=== PATIENT | female | born 1980 | race Caucasian/White ===

== ENCOUNTER 2023-03-10 19:53 | Emergency (ER) | payer OTHER ==
[2023-03-10 20:24] LABS: Absolute Lymphocytes (CBC) 3.3 K/uL (0.7-4.9); Hematocrit 38.6 % (36.0-45.0); Lymphocytes % 44.2 % (15.3-44.8); MCV 81.3 fL (80-100); MPV 7.9 fL (7.6-11.3); Platelets 326 thou/uL (152-406); RBC Red Blood Cell Count 4.74 M/uL (3.86-4.86)
[2023-03-10 20:31] LABS: Protime INR 1.08
[2023-03-10] MEDS ORDERED: ASPIRIN 81 MG CHEWABLE TABLET ONE (20:44)
[2023-03-10 20:45] LABS: ALT/SGPT 30 U/L (13-56); AST/SGOT 16 U/L (15-37); Albumin 3.3 g/dL (3.4-5.0); Alkaline Phosphatase 74 U/L (45-117); BUN Blood Urea Nitrogen 12 mg/dL (7-18); Bicarbonate 23 mEq/L (21-32); Bilirubin Total 0.2 mg/dL (0.2-1.0); Glomerular Filtration Rate 110 ml/min (=/>90); Glucose Level 95 mg/dL (74-106); Magnesium 1.9 mg/dL (1.6-2.4); NT PRO-BNP 93 pg/mL (<125); Potassium 3.1 mEq/L (3.5-5.1); Protein, Total 6.9 g/dL (6.4-8.2); Sodium Level 140 mEq/L (136-145); Troponin High Sensitivity 14.9 pg/mL (<58.9)
[2023-03-10 20:50] LABS: Bilirubin Direct < 0.1 mg/dL (0-0.2); Bilirubin Indirect, Calculated ND mg/dL (0.2-0.8)
--- NOTE | 2023-03-10 20:51 | RAD REPORT ---
EXAM DESCRIPTION: RAD - Chest Single View - 03/10/2023 8:44 pm CLINICAL HISTORY: CHEST PAIN Chest pain. COMPARISON: No comparisons FINDINGS: Portable technique limits examination quality. The lungs are grossly clear. The heart is normal in size. No displaced fractures. IMPRESSION: No acute intrathoracic process suspected.
[2023-03-10 21:05] LABS: Thyroid Stimulating Hormone < 0.005 uIU/mL (0.358-3.740)
--- NOTE | 2023-03-11 00:17 | EDPHYS ---
Physician Documentation [facility] Name: Gisella Smith Age: 42 yrs Sex: Female : 1980 Arrival Date: 03/10/2023 Time: 19:53 Bed 6 Private MD: ED Physician Hector Wells HPI: 03/10 20:05 This 42 yrs old Female presents to ER via Unassigned with complaints of Chest sp4 Pain, Numbness. 20:42 42-year-old female with a history of SVT, mitral valve prolapse, migraines, asthma, sp4 SVT, hypothyroidism, mast cell activation disorder, also history of syncope, presents with acute onset of chest pain starting at 3 PM today associated with numbness in the arms and legs. Patient had history of migraines as well. Patient reported her Apple Watch registered at 200 bpm tachycardia. Patient states that the palpitations have resolved by now. She has no history of previous ablation. . Patient's medications include Nurtec ODT for migraines, Topamax 200 mg for migraines, Premarin 1.25 mg every morning, [place] Thyroid 120 mg every morning, droxidopa 200 mg 3 times a day for hypotension, atenolol 25 mg every evening. Patient has history of rheumatic fever at the age of 31. patient recently moved here from [facility] and she has schedule appointment with machine tester Dr. Ernandez but has not seen him yet. Chest pain was nonexertional. . 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/A - Hysterectomy, Not ha1 Historical: - Allergies: 20:20 Sulfa (Sulfonamide Antibiotics); kl 20:20 Morphine; kl 20:12 Morphine; ha1 20:12 Sulfa (Sulfonamide Antibiotics); ha1 20:12 Bees; ha1 - Home Meds: 20:12 droxidopa oral [Active]; atenolol 25 mg Oral tablet [Active]; Albuterol Inhl [Active]; ha1 hydroxyzine HCl 25 mg Oral tablet [Active]; Dexamethasone Oral [Active]; liothyronine 5 mcg oral tablet [Active]; topiramate 200 mg oral tablet 2 tabs daily [Active]; - PMHx: 20:20 SVT; Mitral Valve Prolapse; Migraines; kl 20:12 Asthma; SVT; MVP; Hypothyroidism; Mast Cell Activation disorder; ha1 - PSHx: 20:12 Tonsillectomy; Cholecystectomy; Appendectomy; Total abdominal hysterectomy; ha1 - Immunization history:: Adult Immunizations up to date. - Social history:: Smoking status: Patient denies any tobacco usage or history of. ROS: 20:49 Constitutional: Negative for fever, chills, and weight loss, positive chest pains and sp4 palpitations positive bilateral hand and foot numbness. 20:49 All other systems are negative, Exam: 20:49 Constitutional: This is a well developed, well nourished patient who is awake, alert, sp4 and in no acute distress. Head/Face: Normocephalic, atraumatic. Eyes: Pupils equal round and reactive to light, extra-ocular motions intact. Lids and lashes normal. Conjunctiva and sclera are not injected. Cornea within normal limits. Periorbital areas with no swelling, redness, or edema. ENT: Nares patent. No nasal discharge, no septal abnormalities noted. Tympanic membranes are normal and external auditory canals are clear. Oropharynx with no redness, swelling, or masses, exudates, or evidence of obstruction, uvula midline. Mucous membranes moist. Neck: Trachea midline, no thyromegaly or masses palpated, and no cervical lymphadenopathy. Supple, full range of motion without nuchal rigidity, or vertebral point tenderness. Chest/axilla: Normal chest wall appearance and motion. Nontender with no deformity. No lesions are appreciated. Cardiovascular: Regular rate and rhythm with a normal S1 and S2. No gallops, murmurs, or rubs. Normal PMI, no JVD. No pulse deficits. Respiratory: Lungs have equal breath sounds bilaterally, clear to auscultation and percussion. No rales, rhonchi or wheezes noted. No increased work of breathing, no retractions or nasal flaring. Abdomen/GI: Soft, non-tender, with normal bowel sounds. No distension or tympany. No guarding or rebound. No evidence of tenderness throughout. Back: No spinal tenderness. No costovertebral tenderness. Skin: Warm, dry with normal turgor. Normal color with no rashes, no lesions, and no evidence of cellulitis. MS/ Extremity: Pulses equal, no cyanosis. Neurovascular intact. Full, normal range of motion. Neuro: Awake and alert, GCS 15, oriented to person, place, time, and situation. Cranial nerves II-XII grossly intact. Motor strength 5/5 in all extremities. Sensory grossly intact. Psych: Awake, alert, with orientation to person, place and time. Behavior, mood, and affect are within normal limits 20:50 ECG was reviewed by the Attending Physician. EKG time 2001, there is normal sinus sp4 rhythm at the rate of 88, there is short CO otherwise normal EKG, no active ectopy 03/11 00:19 EKG reveals normal sinus rhythm at a rate of 91. Repeat EKG was done at 2246, no ST sp4 elevation or depression, no ectopy, overall normal EKG Vital Signs: 03/10 19:58 BP 131 / 66; Pulse 113; Resp 19 S; Temp 98; Pulse Ox 100% on R/A; Weight 63.05 kg; ha1 Height 5 ft. 8 in. ; 21:14 BP 114 / 85; Pulse 97; Resp 17 S; Pulse Ox 100% on R/A; ha1 22:00 BP 119 / 78; Pulse 90; Resp 17 S; Pulse Ox 100% on R/A; ha1 23:00 BP 121 / 92; Pulse 92; Resp 18; Pulse Ox 100% on R/A; rv 03/11 00:00 BP 112 / 91; Pulse 79; Resp 17; Temp 98; Pulse Ox 100% ; rv 03/10 19:58 Body Mass Index 21.13 (63.05 kg, 172.72 cm) ha MDM: 03/10 20:06 Patient medically screened. sp4 21:30 ED course: Chest X ray - EXAM DESCRIPTION: RAD - Chest Single View - 03/10/2023 sp4 CLINICAL HISTORY: CHEST PAIN Chest pain. COMPARISON: No comparisons FINDINGS: Portable technique limits examination quality. The lungs are grossly clear. The heart is normal in size. No displaced fractures. IMPRESSION: No acute intrathoracic process suspected. . 03/11 00:18 Differential diagnosis: abnormal EKG, acute pericarditis, anxiety, coronary artery sp4 disease chest wall pain, congestive heart failure. HEART Score: History: Moderately Suspicious (1), ECG: Normal (0), Age: < or = 45 years (0), Risk Factors: 1 or 2 risk factors (1), Troponin: < or = 1 x Normal Limit (0), Total Score = 2. The patient was given aspirin in the Emergency Department. Data reviewed: vital signs, nurses notes, diagnostic data from outside facility, old medical records, lab test result(s), cardiac enzymes, CBC, electrolytes, hepatic panel, EKG, radiologic studies, plain films. Consideration of Admission/Observation Escalation of care including admission/observation considered. ED course: EKG x2 is unremarkable, troponin x2 is normal. Patient is stable for discharge home and shows advised to see her machine tester in March as scheduled. Return to ER advised for recurrent palpitations or chest pains. 03/10 20:05 Order name: Basic Metabolic Panel; Complete Time: 21: [facility] 03/10 20:05 Order name: CBC with Diff; Complete Time: : [facility] 03/10 20:05 Order name: LFT's; Complete Time: : [facility] 03/10 20:05 Order name: Magnesium; Complete Time: 21: [facility] 03/10 20:05 Order name: NT PRO-BNP; Complete Time: 21: [facility] 03/10 20:05 Order name: PT-INR; Complete Time: 21: [facility] 03/10 20:05 Order name: Troponin HS; Complete Time: 21: [facility] 03/10 20:31 Order name: TSH; Complete Time: 21: [facility] 03/10 20:31 Order name: T4 Free; Complete Time: 21: [facility] 03/10 21:54 Order name: Troponin High Sensitivity: Timed at 23:00; Complete Time: 00:11 [facility] 03/11 00:11 Interpretation: Troponin HS 14.1. [facility] 03/10 20:05 Order name: XRAY Chest (1 view); Complete Time: 21: [facility] 03/10 20:05 Order name: EKG; Complete Time: 20: [facility] 03/10 22:27 Order name: EKG; Complete Time: 22: [facility] 03/10 20:05 Order name: Cardiac monitoring; Complete Time: 20: [facility] 03/10 20:05 Order name: EKG - Nurse/Tech; Complete Time: 20: [facility] 03/10 20:05 Order name: IV Saline Lock; Complete Time: 20: [facility] 03/10 20:05 Order name: Labs collected and sent; Complete Time: 20: sp4 03/10 20:05 Order name: O2 Per Protocol; Complete Time: 20: sp4 03/10 20:05 Order name: O2 Sat Monitoring; Complete Time: 20: sp4 03/10 22:27 Order name: EKG - Nurse/Tech; Complete Time: 22:51 sp4 EC/25 20:50 Rate is 88 beats/min. Rhythm is regular, Normal Sinus Rhythm. QRS [place] is Normal. CO sp4 interval is shortened. QRS interval is normal. QT interval is normal. No Q waves. T waves are Normal. No ST changes noted. Clinical impression: No evidence of ischemia. Interpreted by me. Reviewed by me. Administered Medications: 20:33 Drug: Aspirin PO Chewable Tablet 324 mg PO once; 81 mg tablets x 4 Route: PO; ha1 21:00 Follow up: Response: No adverse reaction ha1 Disposition Summary: 03/11/23 00:16 Discharge Ordered Problem: new sp4 Symptoms: have improved sp4 Condition: Stable sp4 Diagnosis - Palpitations sp4 - Chest pain, unspecified sp4 - Atypical chest pain sp4 Followup: sp4 - With: Glenn Ernandez MD - When: As scheduled in March - Reason: Discharge Instructions: - Discharge Summary Sheet sp4 - Palpitations, Nujx-[id number] sp4 Forms: - Patient Portal Instructions sp4 Signatures: Dispatcher [employer] Cammie Cox RN RN kl Ayala, Heidy, RN RN ha1 Hector Wells MD MD sp4
--- NOTE | 2023-03-11 00:17 | ER ---
Nurse's Notes [facility] Name: Gisella Smith Age: 42 yrs Sex: Female : 1980 Arrival Date: 03/10/2023 Time: 19:53 Bed 6 Private MD: Diagnosis: Palpitations;Chest pain, unspecified;Atypical chest pain Presentation: 03/10 19:58 Chief complaint: Patient states: I have a really bad chest pain that started this ha1 morning, but tonight it has gotten worse. pain 9/10. pain increases with movement. 19:58 Coronavirus screen: Vaccine status: Patient reports receiving the 2nd dose of the covid ha1 vaccine. Moderna. Ebola Screen: No symptoms or risks identified at this time. Initial Sepsis Screen: Does the patient meet any 2 criteria? No. Patient's initial sepsis screen is negative. Does the patient have a suspected source of infection? No. Patient's initial sepsis screen is negative. Risk Assessment: Do you want to hurt yourself or someone else? Patient reports no desire to harm self or others. Onset of symptoms was March 10, 2023. 19:58 Method Of Arrival: Wheelchair ha1 19:58 Acuity: DEONDRE 3 ha1 Triage Assessment: 20:00 General: Appears uncomfortable, Behavior is cooperative. Pain: Complains of pain in ha1 chest Pain does not radiate. Pain currently is 9 out of 10 on a pain scale. Quality of pain is described as pressure, sharp, Pain began gradually. Neuro: Level of Consciousness is awake, alert, obeys commands, Oriented to person, place, time, situation. Cardiovascular: Reports chest pain, Capillary refill < 3 seconds Patient's skin is warm and dry. Pulses are all present. Rhythm is sinus tachycardia. Respiratory: Airway is patent Respiratory effort is even, unlabored, Respiratory pattern is regular, symmetrical. Derm: Skin is pink, warm \T\ dry. Musculoskeletal: Circulation, motion, and sensation intact. Range of motion: intact in all extremities. 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 - Hysterectomy, Not ha1 Historical: - Allergies: 20:20 Sulfa (Sulfonamide Antibiotics); kl 20:20 Morphine; kl 20:12 Morphine; ha1 20:12 Sulfa (Sulfonamide Antibiotics); ha1 20:12 Bees; ha1 - Home Meds: 20:12 droxidopa oral [Active]; atenolol 25 mg Oral tablet [Active]; Albuterol Inhl [Active]; ha1 hydroxyzine HCl 25 mg Oral tablet [Active]; Dexamethasone Oral [Active]; liothyronine 5 mcg oral tablet [Active]; topiramate 200 mg oral tablet 2 tabs daily [Active]; - PMHx: 20:20 SVT; Mitral Valve Prolapse; Migraines; kl 20:12 Asthma; SVT; MVP; Hypothyroidism; Mast Cell Activation disorder; ha1 - PSHx: 20:12 Tonsillectomy; Cholecystectomy; Appendectomy; Total abdominal hysterectomy; ha1 - Immunization history:: Adult Immunizations up to date. - Social history:: Smoking status: Patient denies any tobacco usage or history of. Screenin:00 [facility] ED Fall Risk Assessment (Adult) History of falling in the last 3 months, ha1 including since admission No falls in past 3 months (0 pts) Confusion or Disorientation No (0 pts) Intoxicated or Sedated No (0 pts) Impaired Gait No (0 pts) Mobility Assist Device Used No (0 pt) Altered Elimination No (0 pt) Score/Fall Risk Level 0 - 2 = Low Risk Oriented to surroundings, Maintained a safe environment, Educated pt \T\ family on fall prevention, incl call for assistance when getting out of bed, Hourly rounding (assess needs \T\ fall precautionary measures) done. Abuse screen: Denies threats or abuse. Denies injuries from another. Nutritional screening: No deficits noted. Tuberculosis screening: No symptoms or risk factors identified. Assessment: 19:58 Reassessment: see triage assessment. ha1 21:00 Reassessment: Patient and/or family updated on plan of care and expected duration. Pain ha1 level reassessed. Patient is alert, oriented x 3, equal unlabored respirations, skin warm/dry/pink. pain 1/10 Patient states feeling better. Patient states symptoms have improved. 22:00 Reassessment: Patient and/or family updated on plan of care and expected duration. Pain ha1 level reassessed. Patient is alert, oriented x 3, equal unlabored respirations, skin warm/dry/pink. Patient denies pain at this time. 23:00 Reassessment: Patient and/or family updated on plan of care and expected duration. Pain ha1 level reassessed. Patient is alert, oriented x 3, equal unlabored respirations, skin warm/dry/pink. Patient denies pain at this time. 03/11 00:00 Reassessment: Patient and/or family updated on plan of care and expected duration. Pain ha1 level reassessed. Patient is alert, oriented x 3, equal unlabored respirations, skin warm/dry/pink. Vital Signs: 03/10 19:58 BP 131 / 66; Pulse 113; Resp 19 S; Temp 98; Pulse Ox 100% on R/A; Weight 63.05 kg; ha1 Height 5 ft. 8 in. ; 21:14 BP 114 / 85; Pulse 97; Resp 17 S; Pulse Ox 100% on R/A; ha1 22:00 BP 119 / 78; Pulse 90; Resp 17 S; Pulse Ox 100% on R/A; ha1 23:00 BP 121 / 92; Pulse 92; Resp 18; Pulse Ox 100% on R/A; rv 03/11 00:00 BP 112 / 91; Pulse 79; Resp 17; Temp 98; Pulse Ox 100% ; rv 03/10 19:58 Body Mass Index 21.13 (63.05 kg, 172.72 cm) ha1 ED Course: 03/10 19:55 Patient arrived in ED. mr 19:58 Patient has correct armband on for positive identification. Placed in gown. Bed in low ha1 position. Call light in reach. Side rails up X 1. 19:58 Arm band placed on right wrist. ha1 20:00 Patient maintains SpO2 saturation greater than 95% on room air. ha1 20:04 Hector Wells MD is Attending Physician. sp4 20:12 Triage completed. ha1 20:19 EKG completed in triage. Results shown to . kl 20:19 Inserted saline lock: 20 gauge in right antecubital area, using aseptic technique. kl Blood collected. 20:19 Basic Metabolic Panel Sent. kl 20:19 CBC with Diff Sent. kl 20:20 LFT's Sent. kl 20:20 Magnesium Sent. kl 20:20 NT PRO-BNP Sent. kl 20:20 PT-INR Sent. kl 20:20 Troponin HS Sent. kl 20:38 Client placed on continuous cardiac and pulse oximetry monitoring. NIBP monitoring ha1 applied. 20:46 XRAY Chest (1 view) In Process Unspecified. EDMS 21:24 Jacob Barajas, MICHELLE is Primary Nurse. rv 03/11 00:15 Glenn Ernandez MD is Referral Physician. sp4 00:25 No provider procedures requiring assistance completed. IV discontinued, intact, ha1 bleeding controlled, No redness/swelling at site. Pressure dressing applied. 00:26 Provided Education on: following up with marker assembler . ha1 Administered Medications: 03/10 20:33 Drug: Aspirin PO Chewable Tablet 324 mg PO once; 81 mg tablets x 4 Route: PO; ha1 21:00 Follow up: Response: No adverse reaction ha1 Medication: 20:38 VIS not applicable for this client. ha1 Outcome: 03/11 00:16 Discharge ordered by . sp4 00:25 Discharged to home ambulatory, ha1 00:25 Condition: stable 00:25 Discharge instructions given to patient, Instructed on discharge instructions, follow up and referral plans. Demonstrated understanding of instructions, follow-up care, 00:26 Patient left the ED. ha1 Signatures: Dispatcher [employer] EDMS Cammie Sexton RN RN kl Rivera, Mary, Reg Reg mr Jacob Barajas RN RN rv Ayala, Heidy, RN RN ha1 Hector Wells MD MD sp4 Corrections: (The following items were deleted from the chart) 03/10 21:18 19:58 BP 131 / 66; Pulse 113bpm; Resp 19bpm; Spontaneous; Pulse Ox 100% RA; 63.05 kg; ha1 Height 5 ft. 8 in.; BMI: 21.1; ha1 22:53 22:00 BP 134 / 75; Pulse 76bpm; Resp 17bpm; Spontaneous; Pulse Ox 100% RA; ha1 ha1
--- NOTE | 2023-03-11 07:57 | EKG ---
Test Date: 2023-03-10 Test Time: 22:46:41 X Ray Operator: JANUSZ MEASUREMENT RESULTS: Intervals: Rate: 91 WV: 126 QRSD: 74 QT: 378 QTc: 464 [place]: P: 60 WV: 126 QRS: 84 T: 50 INTERPRETIVE STATEMENTS: Normal sinus rhythm Normal ECG Compared to ECG 03/10/2023 20:02:23 Short [place] interval no longer present Electronically Signed On 03-11-23 07:56:46 CDT by Glenn Ernandez
--- NOTE | 2023-03-11 07:58 | EKG ---
Test Date: 2023-03-10 Test Time: 20:02:23 Neonatal Doctor: MAGGIE MEASUREMENT RESULTS: Intervals: Rate: 88 MD: 108 QRSD: 76 QT: 366 QTc: 442 [place]: P: 63 MD: 108 QRS: 84 T: 45 INTERPRETIVE STATEMENTS: Sinus rhythm with short MD Otherwise normal ECG No previous ECG available for comparison Electronically Signed On 03-11-23 07:56:53 CDT by Glenn Ernandez
[2023-03-11 16:15] VITALS: BP 112/91; TEMP 98; O2SAT 100
== END 2023-03-11 00:26 | disposition home or self-care (01) ==
LOC: ER 19:53
DX: R00.2 Palpitations (principal); R07.9 Chest pain, unspecified; E03.9 Hypothyroidism, unspecified; J45.909 Unspecified asthma, uncomplicated; I34.1 Nonrheumatic mitral (valve) prolapse; Z88.5 Allergy status to narcotic agent; Z88.2 Allergy status to sulfonamides
CPT/HCPCS: 36415; 71045; 80048; 80076; 83735; 83880; 84439; 84443; 84484; 85025; 85610; 93005; 99285

== ENCOUNTER 2023-05-24 10:46 | Observation (INO) | payer OTHER ==
--- OUTSIDE RECORDS SUMMARY | 2023-05-24 10:49 | XMS REPORT | Continuity of Care Document ---
Author Name Unknown Address [address] [place] [address] [facility] Address [address] [facility] [address] [place] [address] Care Team Providers Care Hoe Runner Name Role Phone BLACK GALLAGHER Attending Clinician Unavailable [id number] Attending Clinician Unavailable MACIEL MONACO Attending Clinician Unavailable Payers Payer Name Policy Type Policy Number Effective Date Expirati on Date Source CIGNA-CIGNA/PPO 2 [id number] 2023 00:00:00 Problems Condition Name Condition Details Condition Category Status Onset Date Resolution Date Last Treatment Date Treating Clinician Comments Source Allergic rhinitis Allergic rhinitis Disease Active 2022-05 0- 00:00: 00 Paula Katzold - Externa l Asthma (HHS-HCC) Asthma (HHS-HCC) Disease Active 2022-05 0- 00:00: 00 Paula Katzold - Externa l 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 2022-05 0- 00:00: 00 Paula Seybold - Externa l GERD (gastroeso phageal reflux disease) GERD (gastroeso phageal reflux disease) Disease Active 2022-05 0- 00:00: 00 Paula Seybold - Externa l Hypothyroi dism (acquired) Hypothyroi dism (acquired) Disease Active 2022-05 0- 00:00: 00 Paula Mayaybold - Externa l 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 2022-05 0- 00:00: 00 Paula Katzold - Externa l Migraine Migraine Disease Active 2022-05 0- 00:00: 00 Paula Arreguina aileen Orthostati c hypotensio n Orthostati c hypotensio n Disease Active 2022-05 0 00:00: 00 Paula Arreguina aileen Mitral valve prolapse Mitral valve prolapse Disease Active 2022-05 0 00:00: 00 Paula Arreguina aileen SVT (supravent ricular tachycardi a) SVT (supravent ricular tachycardi a) Disease Active 2022-05 0 00:00: 00 Paula Arreguina aileen Hormone replacemen t therapy Hormone replacemen t therapy Disease Active 2022-05 0 00:00: 00 Paula Arreguina aileen Allergies, Adverse Reactions, Alerts Allergy Name Allergy Type Status Severity Reaction(s) Onset Date Inactive Date Treating Clinician Comments Source Honey Propensi ty to adverse reaction s Active Anaphylaxis 2022-05 00:00: 00 Paula Arreguina aileen Morphine Propensi ty to adverse reaction s Active Anaphylaxis 2022-05 0 00:00: 00 Paula Arreguina aileen Sulfa Drugs Propensi ty to adverse reaction s Active Hives 2022-05 0 00:00: 00 Paula Arreguina aileen Bee Venom Propensi ty to adverse reaction s Active Anaphylaxis 2022-05 00:00: 00 Paula Arreguina aileen Social History Social Habit Start Date Stop Date Quantity Comments Source Sexual orientation Mignon diony Velazco - External Alcohol intake 2023-02-15 00:00:00 2023-02-15 00:00:00 Current drinker of alcohol (finding) Paula Velazco - External History of Social function 2023-02-15 00:00:00 2023-02-15 00:00:00 Paula Velazco - External Education 2023-02-15 00:00:00 2023-02-15 00:00:00 18 Paula Velazco - External Alcohol Comment 2023-02-15 00:00:00 2023-02-15 00:00:00 rarely Paula Velazco - External Tobacco use and exposure 2023-02-15 00:00:00 2023-02-15 00:00:00 Smokeless tobacco non-user Paula Sosa Sex Assigned At 1980 00:00:00 1980 00:00:00 Paula Sosa Smoking Status Start Date Stop Date Source Never smoked tobacco Paula Sosa Medications Ordered Medication Name Filled Medication Name Start Date Stop Date Current Medication? Ordering Clinician Indication Dosage Frequency Signature (SIG) Comments Components Source Famotidine (Pepcid) 20 MG oral tablet 2022-05 12:02: 35 02-15 00:00 :00 No 20mg Take 1 tablet (20 mg total) by mouth 2 times daily. Paula gallagher Thyroid 120 MG oral Tablet 2022-05 12:02: 35 02-15 00:00 :00 No 1{tbl} Take 1 tablet by mouth daily. Paula gallagher EPINEPHrine (EPIPEN IJ) 2022-05 11:51: 05 02-15 00:00 :00 No Inject as directed. Paula gallagher Fluconazole (DIFLUCAN OR) 2022-05 11:50: 27 02-15 00:00 :00 No Take by mouth. Paula gallagher Cetirizine HCl (ZyrTEC) 10 MG oral Chewable Tablet 2022-05 11:41: 56 Yes [id number] 10mg Take 1 tablet (10 mg total) by mouth daily. Paula gallagher Loratadine (Claritin) 10 MG oral Capsule 2022-05 11:41: 56 Yes [id number] 10mg Take 1 capsule (10 mg total) by mouth daily. Paula gallagher Topiramate 200 MG oral Tablet 2022-05 00:00: 00 Yes [id number] 200mg Take 1 tablet (200 mg total) by mouth 2 times daily. Paula gallagher hydrOXYzine HCl 25 MG oral Tablet 2022-05 00:00: 00 Yes [id number] 25 mg am and 50 mg night. Paula gallagher Liothyronin e Sodium 5 MCG oral Tablet 2022-05 00:00: 00 Yes [id number] 5ug Take 1 tablet (5 mcg total) by mouth 2 times daily. Paula gallagher Thyroid 120 MG oral Tablet 2022-05 00:00: 00 Yes [id number] 1{tbl} Take 1 tablet by mouth daily. Paula gallagher Famotidine (Pepcid) 20 MG oral tablet 2022-05 00:00: 00 Yes [id number] 20mg Take 1 tablet (20 mg total) by mouth 2 times daily. Paula gallagher Droxidopa 200 MG oral Capsule 2022-05 00:00: 00 Yes [id number] 200mg Take 200 mg by mouth 3 times daily. Paula gallagher Cyclobenzap rine HCl 5 MG oral Tablet 2022-05 00:00: 00 Yes [id number] 5mg QD Take 1 tablet (5 mg total) by mouth nightly as needed for muscle spasms. Paula gallagher Atenolol 25 MG oral Tablet 2022-05 00:00: 00 Yes [id number] 25mg Take 1 tablet (25 mg total) by mouth daily. Paula gallagher EPINEPHrine 0.3 MG/0.3 ML IJ SOA 2022-05 00:00: 00 Yes [id number] .3mg Inject 0.3 mL (0.3 mg total) into the muscle as needed for anaphylaxi s 1 time only. Paula gallagher Estrogens Conjugated (Premarin) 1.25 MG oral Tablet 2022-05 00:00: 00 Yes [id number] 1.25mg Take 1 tablet (1.25 mg total) by mouth daily. Paula gallagher Liothyronin e Sodium 5 MCG oral Tablet 2022-05 00:00: 00 02-15 00:00 :00 No 5ug Take 1 tablet (5 mcg total) by mouth 2 times daily. Paula gallagher Cyclobenzap rine HCl 5 MG oral Tablet 9-30 00:00: 00 02-15 00:00 :00 No Paula gallagher hydrOXYzine HCl 25 MG oral Tablet 930 00:00: 00 02-15 00:00 :00 No 25mg Take 1 tablet (25 mg total) by mouth 2 times daily 25 mg am and 50 mg night. Paula gallagher Montelukast (SINGULAIR) 10 MG oral Tablet tablet 02-10 00:00: 00 Yes [id number] 10mg Take 1 tablet (10 mg total) by mouth daily. Paula gallagher Atenolol 25 MG oral Tablet 02-10 00:00: 00 02-15 00:00 :00 No Paula gallaghre Droxidopa 200 MG oral Capsule 9-07 00:00: 00 02-15 00:00 :00 No 200mg Take 200 mg by mouth 3 times daily. Paula gallagher [place] Saline Nasal nasal Gel 825 00:00: 00 Yes [id number] Paula gallagher Premarin 1.25 MG oral Tablet 8-15 00:00: 00 02-15 00:00 :00 No 1.25mg Take 1 tablet (1.25 mg total) by mouth daily. Paula gallagher Topiramate 200 MG oral Tablet -03 00:00: 00 02-15 00:00 :00 No 20mg Take 20 mg by mouth 2 times daily. Paula gallagher Nurtec 75 MG oral TABLET DISPERSIBLE 8 00:00: 00 Yes [id number] 75mg Take 1 tablet (75 mg total) by mouth as needed. Paula gallagher Immunizations Ordered Immunization Name Filled Immunization Name Date Status Comments Source Covid-19 Vaccine Moderna (Spikevax), Mrna-lnp, Kevin Protein, Pf Unknown Completed Paula Sosa Covid-19 Vaccine Moderna (Spikevax), Mrna-lnp, Kevin Protein, Pf Unknown Completed Paula Sosa Covid-19 Vaccine (SunGard), Mrna-lnp, Kevin Protein, Pf, 30mcg/0.3ml,IM Unknown Completed Paula Campo d - External COVID-19 BIVALENT VACCINE MODERNA Unknown Completed Paula Cotto ld - External Influenza, Injectable, Mdck, Quadrivalent With Preservative Unknown Completed Paula Velazco - External Tdap- (Boostrix, Adacel) Unknown Completed Paula Katzold - External Vital Signs Vital Name Observation Time Observation Value Comments S ource Systolic blood pressure 2023-02-15 16:32:00 138 mm[Hg] Paula jimo ld - External Diastolic blood pressure 2023-02-15 16:32:00 78 mm[Hg] Paula Cotto ld - External Heart rate 2023-02-15 16:32:00 72 /min Hayley wang giovani - External Body temperature 2023-02-15 16:32:00 36.72 Bryanna Paula jimold - External Respiratory rate 2023-02-15 16:32:00 14 /min Paula jimold - External Body height 2023-02-15 16:32:00 172.7 cm Roxanne mendez Seybold - External Body weight 2023-02-15 16:32:00 65.772 kg Roxanne mendez Seybold - External BMI 2023-02-15 16:32:00 22.05 kg/m2 Roxanne mendez Seybold - External Encounters Start Date/Time End Date/Time Encounter Type Admission Type Attending [facility] Care Department Encounter ID Source 2023-05-20 08:30:00 2023-05-20 08:30:00 Outpatient BLACK GALLAGHER [id number] Paula Velazco 2023-04-23 10:20:00 2023-04-23 10:20:00 Outpatient LAB90 PAULA MITCHELL [id number] Paula Velazco 2023-04-23 00:00:00 2023-04-23 00:00:00 Outpatient BLACK GALLAGHER [id number] Paula Velazco 2023-03-10 11:30:00 2023-03-10 11:30:00 Outpatient MACIEL MONACO [id number] Paula Velazco 2023-03-05 00:00:00 2023-03-05 00:00:00 Outpatient BLACK GALLAGHER [id number] Paula Velazco 2023-02-17 00:00:00 2023-02-17 00:00:00 Outpatient BLACK GALLAGHER [id number] Paula Velazco 2023-02-15 11:15:00 2023-02-15 11:15:00 Outpatient BLACK GALLAGHER [id number] Paula Velazco
[2023-05-24 11:48] LABS: Absolute Lymphocytes (CBC) 3.2 K/uL (0.7-4.9); Hematocrit 38.7 % (36.0-45.0); Lymphocytes % 60.2 % (15.3-44.8); MCV 81.8 fL (80-100); MPV 8.4 fL (7.6-11.3); Platelets 289 thou/uL (152-406); RBC Red Blood Cell Count 4.72 M/uL (3.86-4.86)
[2023-05-24 11:59] LABS: Protime INR 1.1
[2023-05-24] MEDS ORDERED: ASPIRIN 81 MG CHEWABLE TABLET ONE (12:04)
[2023-05-24 12:07] LABS: Albumin 3.4 g/dL (3.4-5.0); Bilirubin Direct 0.1 mg/dL (0-0.2); Bilirubin Indirect, Calculated 0.3 mg/dL (0.2-0.8); Bilirubin Total 0.4 mg/dL (0.2-1.0); Magnesium 1.6 mg/dL (1.6-2.4); Potassium 3.2 mEq/L (3.5-5.1); Protein, Total 7.2 g/dL (6.4-8.2)
[2023-05-24 12:17] LABS: Blood Morphology Comment NOT SEEN (NOT SEEN); Platelet Estimate ADEQ
--- NOTE | 2023-05-24 12:24 | RAD REPORT ---
EXAM DESCRIPTION: RAD - Chest Single View - 05/24/2023 12:18 pm CLINICAL HISTORY: CHEST PAIN Chest pain. COMPARISON: Chest Single View dated 03/10/2023 FINDINGS: Portable technique limits examination quality. The lungs are grossly clear. The heart is normal in size. No displaced fractures. IMPRESSION: No acute intrathoracic process suspected.
--- NOTE | 2023-05-24 15:18 | EDPHYS ---
Physician Documentation [facility] Name: Gisella Smith Age: 42 yrs Sex: Female : 1980 Arrival Date: 05/24/2023 Time: 10:46 Bed 20 Private MD: ED Physician Natali Bashir HPI: 05/24 15:21 This 42 yrs old Female presents to ER via Wheelchair with complaints of Chest gb1 Pain, Dizziness. 11:46 42-year-old female presents with left-sided chest pain that radiates down her gb1 left arm and left jaw. She has a history of mitral valve prolapse and SVT as well as hypothyroidism. She has been seen by Dr. Choi her social contact worker and was recommended last week to get a left heart cath due to and performing poorly on her stress test. Patient states the pain is not radiating anywhere other than as previously stated. She denies any fever chills or diarrhea.. 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 N/A - Hysterectomy, Not tl4 Historical: - Allergies: 11:31 Morphine; iw 11:31 Bees; iw 11:31 Sulfa (Sulfonamide Antibiotics); iw - Home Meds: 15:12 albuterol sulfate 90 mcg/actuation inhalation HFA Aerosol Inhaler [Active]; atenolol 25 tl4 mg Oral tablet daily [Active]; topiramate 200 mg Oral tablet 2 tabs daily [Active]; liothyronine 5 mcg Oral tablet [Active]; droxidopa 300 mg oral capsule 3 times per day [Active]; hydroxyzine HCl 25 mg Oral tablet [Active]; [place] Thyroid 120 mg oral tablet daily [Active]; Premarin 1.25 mg Oral tablet daily [Active]; Zyrtec 10 mg Oral tablet every day at bedtime [Active]; Claritin 10 mg Oral tablet daily [Active]; Pepcid AC 10 mg Oral tablet [Active]; Singulair 10 mg Oral tablet every day at bedtime [Active]; Nurtec ODT 75 mg oral Tablet,disintegrating [Active]; dexamethasone sodium phosphate 0.1 % Opht drops [Active]; Zofran Oral [Active]; - PMHx: 11:31 Asthma; Hypothyroidism; Mast Cell Activation disorder; mitral valve prolapse; SVT; iw 15:18 Migraines; tl4 - PSHx: 15:18 Appendectomy; Cholecystectomy; Tonsillectomy; Total abdominal hysterectomy; tl4 - Immunization history:: Adult Immunizations unknown. - Social history:: Smoking status: Patient denies any tobacco usage or history of. ROS: 11:46 Cardiovascular: Positive for chest pain, gb1 11:46 All other systems are negative, Exam: 11:46 Constitutional: This is a well developed, well nourished patient who is awake, alert, gb1 and in no acute distress. Head/Face: Normocephalic, atraumatic. Eyes: Pupils equal round and reactive to light, extra-ocular motions intact. Lids and lashes normal. Conjunctiva and sclera are non-icteric and not injected. Cornea within normal limits. Periorbital areas with no swelling, redness, or edema. ENT: Nares patent. No nasal discharge, no septal abnormalities noted. Tympanic membranes are normal and external auditory canals are clear. Oropharynx with no redness, swelling, or masses, exudates, or evidence of obstruction, uvula midline. Mucous membranes moist. Neck: Trachea midline, no thyromegaly or masses palpated, and no cervical lymphadenopathy. Supple, full range of motion without nuchal rigidity, or vertebral point tenderness. No Meningismus. Respiratory: Lungs have equal breath sounds bilaterally, clear to auscultation and percussion. No rales, rhonchi or wheezes noted. No increased work of breathing, no retractions or nasal flaring. Abdomen/GI: Soft, non-tender, with normal bowel sounds. No distension or tympany. No guarding or rebound. No evidence of tenderness throughout. Back: No spinal tenderness. No costovertebral tenderness. Full range of motion. Skin: Warm, dry with normal turgor. Normal color with no rashes, no lesions, and no evidence of cellulitis. MS/ Extremity: Pulses equal, no cyanosis. Neurovascular intact. Full, normal range of motion. 11:46 Cardiovascular: Rate: tachycardic, Rhythm: regular, Heart sounds: normal, Vital Signs: 11:31 BP 129 / 82; Pulse 91; Resp 18; Pulse Ox 100% on R/A; iw 12:16 BP 108 / 98; Pulse 86; Resp 18; Pulse Ox 100% ; Pain 0/10; tl4 13:00 BP 110 / 62; Pulse 77; Resp 16; Pulse Ox 100% on R/A; tl4 14:00 BP 116 / 78; Pulse 72; Resp 18; Pulse Ox 100% on R/A; tl4 15:00 BP 110 / 67; Pulse 79; Resp 20; Pulse Ox 98% on R/A; tl4 12:16 Pain Scale: Adult tl4 MDM: 11:33 Patient medically screened. gb1 11:46 Differential diagnosis: abnormal EKG, acute myocardial infarction, acute pericarditis, gb1 coronary artery disease cholecystitis, Cholelithiasis mitral valve prolapse, pancreatitis, pericarditis, pulmonary embolus, stable angina, unstable angina. 15:17 HEART Score: History: Highly Suspicious (2), ECG: Significant ST-deviation (2), Age: < gb1 or = 45 years (0), Risk Factors: 1 or 2 risk factors (1), Troponin: < or = 1 x Normal Limit (0), Total Score = 5. The patient was given aspirin in the Emergency Department. Data reviewed: vital signs, nurses notes, EKG, radiologic studies, Chest x-ray is within normal limits.. Counseling: I had a detailed discussion with the patient and/or guardian regarding the historical points, exam findings, and any diagnostic results supporting the discharge/admit diagnosis, lab results, the need for further work-up and treatment in the hospital. Transition of care: After a detail discussion of the patient's case, care is transferred to Javier Trejo MD. ED course: I discussed the case with Dr. Trejo in the emergency department he agreed to admit her to the telemetry unit. The inpatient team will reach out to Dr. Ernandez and devise a plan for this patient. I likely think that she will be left heart cath patient on this admission.. 05/24 11:34 Order name: Basic Metabolic Panel; Complete Time: 12:43 05/24 11:34 Order name: CBC with Diff; Complete Time: 12:43 05/24 11:34 Order name: D-Dimer; Complete Time: 12:02 05/24 11:34 Order name: LFT's; Complete Time: 12:43 gb05/24 11:34 Order name: Magnesium; Complete Time: 12:43 05/24 11:34 Order name: NT PRO-BNP; Complete Time: 12:43 gb1 05/24 11:34 Order name: PT-INR; Complete Time: 12:02 gb1 05/24 11:34 Order name: Troponin HS; Complete Time: 12:43 gb1 05/24 11:34 Order name: Lipase; Complete Time: 12:43 gb1 05/24 12:17 Order name: Manual Differential; Complete Time: 12:43 EDMS 05/24 23:46 Order name: Troponin High Sensitivity; Complete Time: 19:47 EDMS 05/25 04:29 Order name: CBC with Automated Diff; Complete Time: 19:47 EDMS 05/25 04:39 Order name: Troponin High Sensitivity; Complete Time: 19:47 EDMS 05/25 04:53 Order name: Basic Metabolic Panel; Complete Time: 19:47 EDMS 05/25 04:53 Order name: Lipid Profile; Complete Time: 19:47 EDMS 05/25 04:53 Order name: T4 Free; Complete Time: 19:47 EDMS 05/25 04:53 Order name: Thyroid Stimulating Hormone; Complete Time: 19:47 EDMS 05/24 11:34 Order name: XRAY Chest (1 view); Complete Time: 12:43 gb1 05/24 11:34 Order name: EKG; Complete Time: 11:35 gb1 05/24 11:34 Order name: Cardiac monitoring; Complete Time: 11:54 gb1 05/24 11:34 Order name: EKG - Nurse/Tech; Complete Time: 11:54 gb1 05/24 11:34 Order name: IV Saline Lock; Complete Time: 11:54 gb05/24 11:34 Order name: Labs collected and sent; Complete Time: 11:54 gb05/24 11:34 Order name: O2 Per Protocol; Complete Time: 12:02 gb1 05/24 11:34 Order name: O2 Sat Monitoring; Complete Time: 12:02 gb Administered Medications: 12:09 Drug: Aspirin PO Chewable Tablet 324 mg PO once; 81 mg tablets x 4 Route: PO; tl4 16:16 Follow up: Response: No adverse reaction tl4 Disposition: 15:21 Chart complete. Chart complete. Chart complete. gb1 Disposition Summary: 05/24/23 15:17 Hospitalization Ordered Notes: Hospitalization Status: Observation gb1 Provider: Trejo, Javier gb1 Condition: Stable gb1 Problem: new gb1 Symptoms: are unchanged gb1 Bed/Room Type: Standard gb1 Location: Telemetry/MedSurg (observation)(05/25/23 12:34) bd Room Assignment: 228(05/25/23 12:34) bd Diagnosis - Unstable angina gb1 - Chest pain, unspecified gb1 Forms: - Medication Reconciliation Form gb1 - SBAR form gb1 - Leadership Thank You Letter gb1 Signatures: Dispatcher [employer] EDMarilyn Parisi Irene RN RN iw Neva Corado, RN RN kb3 Natali Bashir MD MD gb1 Logdahl, Wilfredo tl4 Corrections: (The following items were deleted from the chart) 15:20 15:12 Home Meds: Dexamethasone Oral; tl4 tl4 15:20 15:18 PMHx: SVT; tl4 tl4 15:20 15:18 PMHx: MVP; tl4 tl4 18:28 15:17 Telemetry/MedSurg (observation) gb1 kb3 18:28 15:17 gb1 kb3 05/25 12:34 05/24 18:28 [facility] ER HOLD kb3 bd 05/25 12:34 05/24 18:28 ERHOLD- kb3 bd
--- NOTE | 2023-05-24 15:18 | ER ---
Nurse's Notes [facility] Name: Gisella Smith Age: 42 yrs Sex: Female : 1980 Arrival Date: 05/24/2023 Time: 10:46 Bed 20 Private MD: Diagnosis: Unstable angina;Chest pain, unspecified Presentation: 05/24 11:29 Chief complaint: Patient states: having chest pain all weekend, is due for heart cath iw on Wednesday , has also been fainting which she does from time to time. Coronavirus screen: At this time, the client does not indicate any symptoms associated with coronavirus-19. Ebola Screen: Patient negative for fever greater than or equal to 101.5 degrees Fahrenheit, and additional compatible Ebola Virus Disease symptoms Patient denies exposure to infectious person. Patient denies travel to an Ebola-affected area in the 21 days before illness onset. No symptoms or risks identified at this time. Risk Assessment: Do you want to hurt yourself or someone else? Patient reports no desire to harm self or others. 11:29 Method Of Arrival: Wheelchair iw 11:29 Acuity: DEONDRE 2 iw 11:31 Initial Sepsis Screen: Does the patient meet any 2 criteria? No. Patient's initial iw sepsis screen is negative. Does the patient have a suspected source of infection? No. Patient's initial sepsis screen is negative. Onset of symptoms was May 22, 2023. Triage Assessment: 12:15 General: Appears in no apparent distress. Behavior is calm, cooperative. General: tl4 Behavior is anxious. Pain: Denies pain. 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:32 LMP N/A - Hysterectomy, Not tl4 Historical: - Allergies: 11:31 Morphine; iw 11:31 Bees; iw 11:31 Sulfa (Sulfonamide Antibiotics); iw - Home Meds: 15:12 albuterol sulfate 90 mcg/actuation inhalation HFA Aerosol Inhaler [Active]; atenolol 25 tl4 mg Oral tablet daily [Active]; topiramate 200 mg Oral tablet 2 tabs daily [Active]; liothyronine 5 mcg Oral tablet [Active]; droxidopa 300 mg oral capsule 3 times per day [Active]; hydroxyzine HCl 25 mg Oral tablet [Active]; [place] Thyroid 120 mg oral tablet daily [Active]; Premarin 1.25 mg Oral tablet daily [Active]; Zyrtec 10 mg Oral tablet every day at bedtime [Active]; Claritin 10 mg Oral tablet daily [Active]; Pepcid AC 10 mg Oral tablet [Active]; Singulair 10 mg Oral tablet every day at bedtime [Active]; Nurtec ODT 75 mg oral Tablet,disintegrating [Active]; dexamethasone sodium phosphate 0.1 % Opht drops [Active]; Zofran Oral [Active]; - PMHx: 11:31 Asthma; Hypothyroidism; Mast Cell Activation disorder; mitral valve prolapse; SVT; iw 15:18 Migraines; tl4 - PSHx: 15:18 Appendectomy; Cholecystectomy; Tonsillectomy; Total abdominal hysterectomy; tl4 - Immunization history:: Adult Immunizations unknown. - Social history:: Smoking status: Patient denies any tobacco usage or history of. Screenin:13 [facility] ED Fall Risk Assessment (Adult) History of falling in the last 3 months, tl4 including since admission No falls in past 3 months (0 pts) Confusion or Disorientation No (0 pts) Intoxicated or Sedated No (0 pts) Impaired Gait No (0 pts) Mobility Assist Device Used No (0 pt) Altered Elimination No (0 pt) Score/Fall Risk Level 0 - 2 = Low Risk. Abuse screen: Denies threats or abuse. Denies injuries from another. Nutritional screening: No deficits noted. Tuberculosis screening: No symptoms or risk factors identified. Assessment: 12:11 Reassessment: Patient and/or family updated on plan of care and expected duration. Pain tl4 level reassessed. Patient is alert, oriented x 3, equal unlabored respirations, skin warm/dry/pink. Pt denies any chest pain or discomfort, SOB. Pain: Denies pain. Pain does not radiate. Pain began patient currently does not have pain. pain is sudden in onset when she has it. Cardiovascular: Reports lightheadedness, nausea, chest pain, resolved. Vital Signs: 11:31 BP 129 / 82; Pulse 91; Resp 18; Pulse Ox 100% on R/A; iw 12:16 BP 108 / 98; Pulse 86; Resp 18; Pulse Ox 100% ; Pain 0/10; tl4 13:00 BP 110 / 62; Pulse 77; Resp 16; Pulse Ox 100% on R/A; tl4 14:00 BP 116 / 78; Pulse 72; Resp 18; Pulse Ox 100% on R/A; tl4 15:00 BP 110 / 67; Pulse 79; Resp 20; Pulse Ox 98% on R/A; tl4 12:16 Pain Scale: Adult tl4 ED Course: 10:47 Patient arrived in ED. rg4 11:29 Michelle Chester, RN is Primary Nurse. iw 11:31 Triage completed. iw 11:32 Arm band placed on. iw 11:33 Natali Bashir MD is Attending Physician. gb1 12:14 Patient has correct armband on for positive identification. Placed in gown. Bed in low tl4 position. Call light in reach. Side rails up X2. Provided Education on: ED process. Client placed on continuous cardiac and pulse oximetry monitoring. NIBP monitoring applied. engine monitor on. Door closed. Noise minimized. Lights dimmed. Warm blanket given. 12:14 No provider procedures requiring assistance completed. Patient maintains SpO2 tl4 saturation greater than 95% on room air. 12:20 XRAY Chest (1 view) In Process Unspecified. EDMS 15:16 Javier Trejo MD is Hospitalizing Provider. gb1 05/25 08:49 Patient admitted, IV remains in place. db Administered Medications: 05/24 12:09 Drug: Aspirin PO Chewable Tablet 324 mg PO once; 81 mg tablets x 4 Route: PO; tl4 16:16 Follow up: Response: No adverse reaction tl4 Medication: 12:13 VIS not applicable for this client. tl4 Outcome: 15:17 Decision to Hospitalize by Provider. gb1 05/25 08:49 Admitted to ER Hold. Please see [facility] for further documentation. db Condition: stable Instructed on the need for admit, 13:50 Patient left the ED. db Signatures: Dispatcher [employer] EDMS Michelle Chester RN RN iw Rachelle Herrera rg4 Barbie Whipple RN RN db Natali Bashir MD MD gb1 LogdaWilfredo chinchilla tl4 Corrections: (The following items were deleted from the chart) 05/24 15:20 15:12 Home Meds: Dexamethasone Oral; tl4 tl4 15:20 15:18 PMHx: SVT; tl4 tl4 15:20 15:18 PMHx: MVP; tl4 tl4
--- NOTE | 2023-05-24 16:34 | P.HP ---
Certification for Inpatient Patient admitted to: Observation With expected LOS: <2 Midnights Patient will require the following post-hospital care: None Practitioner: I am a practitioner with admitting privileges, knowledge of patient current condition, hospital course, and medical plan of care. Services: Services provided to patient in accordance with Admission requirements found in Title 42 Section 412.3 of the Code of Federal Regulations Patient History Date of Service: 05/24/23 Reason for admission: Chest pain History of Present Illness: 42-year-old female with history of Gurmeet-Danlos syndrome, asthma, hypothyroidism, mast cell activation disorder, SVT presents emergency department chief complaint of chest pain. She reports ongoing episodes of chest pain with exertion with periodic episodes of syncope associated with this for the last few years. She was seen by cardiology in clinic and had an abnormal stress test last week was told she need to have a heart catheterization. She has been having increasing chest pain in frequency duration and severity. She was evaluated in the emergency department initial high-sensitivity troponin 8.0 potassium 3.2. EKG without STEMI criteria chest x-ray negative for acute findings. ED provider wishes to admit under observation for ACS rule out - Past Medical/Surgical History -: Gurmeet-Danlos -: Mast cell activation disorder -: Hypothyroidism -: Mitral valve prolapse Psychosocial/ Personal History: Lives at home - Family History Family History: Reviewed- Non-Contributory - Social History Smoking Status: Never smoker Alcohol use: No CD- Drugs: No Caffeine use: Yes Place of Residence: Home Review of Systems 10-point ROS is otherwise unremarkable Respiratory: Shortness of Breath Cardiovascular: Chest Pain Physical Examination - Physical Exam General: Alert, In no apparent distress, Oriented x3 HEENT: Atraumatic, PERRLA, Mucous membr. moist/pink Neck: Supple, 2+ carotid pulse no bruit, No LAD Respiratory: Clear to auscultation bilaterally, Normal air movement Cardiovascular: Regular rate/rhythm, Normal S1 S2 Gastrointestinal: Normal bowel sounds, No tenderness Musculoskeletal: No tenderness Integumentary: No rashes Neurological: Normal speech, Normal strength at 5/5 x4 extr, Normal tone, Normal affect - Studies Laboratory Data (last 24 hrs) 05/24/23 05/24/23 05/24/23 11:40 11:40 11:40 WBC 5.40 Hgb 13.1 Hct 38.7 Plt Count 289 PT 12.1 INR 1.10 Sodium 139 Potassium 3.2 L BUN 15 Creatinine 0.72 Glucose 86 Magnesium 1.6 Total Bilirubin 0.4 AST 14 L ALT 24 Alkaline Phosphatase 84 Lipase 23 Assessment and Plan - Plan Assessment: Chest pain rule out ACS Mitral valve prolapse History of Gurmeet-Danlos syndrome Hypothyroidism Plan: Chest pain rule out ACS Mitral valve prolapse Patient reports abnormal stress test last week, was told she would need heart cath Will trend troponins, monitor on telemetry and place cardiology consult initial high-sensitivity negative NPO after midnight in case of heart catheterization Reports recent echocardiogram with cardiology-no results available to review at this time History of Gurmeet-Danlos syndrome Hypothyroidism Continue medications DVT PPX: Lovenox Code status: Full Discharge Plan: Home Plan to discharge in: 24 Hours - Advance Directives Does patient have a Living Will: No Does patient have a Durable POA for Healthcare: No - Code Status/Comfort Care Code Status Assessed: Yes (Full code) Critical Care: No Time Spent Managing Pts Care (In Minutes): 55
[2023-05-24 22:12] VITALS: BMI 21.1
[2023-05-24] MEDS ORDERED: ONDANSETRON 4 MG/2 ML VIAL IV PRN (22:14)
[2023-05-25 04:23] LABS: Absolute Lymphocytes (CBC) 2.9 K/uL (0.7-4.9); Hematocrit 34.3 % (36.0-45.0); MCV 82.1 fL (80-100); MPV 8.5 fL (7.6-11.3); Platelets 273 thou/uL (152-406); RBC Red Blood Cell Count 4.18 M/uL (3.86-4.86)
[2023-05-25 04:29] LABS: Lymphocytes % 62.9 % (15.3-44.8)
[2023-05-25 04:52] LABS: BUN Blood Urea Nitrogen 15 mg/dL (7-18); Bicarbonate 21 mEq/L (21-32); Glomerular Filtration Rate 113 ml/min (=/>90); Glucose Level 89 mg/dL (74-106); HDL Cholesterol 63 mg/dL (40-60); LDL Cholesterol, Calculated 107 mg/dL (<130); Potassium 3.4 mEq/L (3.5-5.1); Sodium Level 141 mEq/L (136-145)
[2023-05-25 04:53] LABS: Thyroid Stimulating Hormone < 0.005 uIU/mL (0.358-3.740)
[2023-05-25] MEDS ORDERED: KCL 20 MEQ/100 mL IVPB 200 ML IV ONE (05:35)
[2023-05-25] MEDS: KCL 20 MEQ/100 mL IVPB 20 MEQ/100 ML BAG IV SCH ×2 (06:00→09:15)
[2023-05-25] MEDS ORDERED: LIDOCAINE 1% 20 ML MDV ONE (07:35)
[2023-05-25] MEDS ORDERED: HEPA 1000U/500MLS 2,000 UNIT/1,000 ML BAG IV ONE (07:35)
[2023-05-25] MEDS ORDERED: VERAPAMIL HCL 10 MG/4 ML VIAL IV ONE (07:36)
[2023-05-25] MEDS ORDERED: MIDAZOLAM HCL 2 MG/2 ML INJ ONE (07:36)
[2023-05-25] MEDS ORDERED: FENTANYL CITR 100 MCG/2 ML ONE (07:36)
[2023-05-25] MEDS ORDERED: HEPARIN 10,000 UNIT/10 ML VIAL IV ONE (07:37)
[2023-05-25] MEDS ORDERED: HEPARIN 5000 UNIT/ML 1 ML VIAL ONE (07:37)
[2023-05-25] MEDS ORDERED: ATROPINE SULF 1 MG/10 ML SYR IV ONE (07:37)
[2023-05-25] MEDS ORDERED: ENOXAPARIN 40 MG/0.4 ML SQ ONE (08:23)
[2023-05-25] MEDS ORDERED: ASPIRIN EC 81 MG TAB PO ONE (08:23)
[2023-05-25] MEDS ORDERED: ASPIRIN EC 81 MG TAB PO SCH (09:00)
[2023-05-25] MEDS ORDERED: ENOXAPARIN 40 MG/0.4 ML SQ SCH (09:00)
--- NOTE | 2023-05-25 10:32 | P.PN ---
Date of Service: 05/25/23 Subjective: Plan for heart cath today, she has been n.p.o. at midnight Calm and comfortably waiting in her bed. Hypotensive, bradycardic overnight ROS 10 point ROS as noted above, otherwise negative Physical Exam General: Alert, NAD, Oriented x3 HEENT: Atraumatic, PERRLA, moist/pink Mucous membr. Neck: Supple, 2+ carotid pulse no bruit, No LAD Respiratory: Clear to auscultation bilaterally, Normal air movement Cardiovascular: Regular rate/rhythm, Normal S1 S2, Gastrointestinal: Normal bowel sounds, No tenderness Musculoskeletal: No tenderness or edema noted Integumentary: No rashes Neurological: Normal speech, Normal strength at 5/5 x4 extr, Normal tone, Normal affect Vitals Reviewed Assessment and Plan Assessment: Chest pain rule out ACS Mitral valve prolapse History of Gurmeet-Danlos syndrome Hypothyroidism Plan: Chest pain rule out ACS Mitral valve prolapse Patient reports abnormal stress test last week, Reel And Rewinder Operator procedure planned today 05/25/23 Will trend troponins .1 monitor on telemetry and place cardiology consult initial high-sensitivity negative NPO after midnight in case of heart catheterization Reports recent echocardiogram with cardiology-results pending Aspirin daily History of Gurmeet-Danlos syndrome Hypothyroidism Continue medications DVT PPX: Lovenox Code status: Full Discharge Plan: Home Plan to discharge in: 24 Hours Time Spent Managing Pts Care (In Minutes): 25
[2023-05-25] MEDS ORDERED: NA CHLORIDE 0.9% 500 ML ONE (15:59)
[2023-05-25] MEDS ORDERED: TICAGRELOR 90 MG TABLET PO ONE (16:11)
[2023-05-25] MEDS ORDERED: CLOPIDOGREL 75 MG TABLET ONE (16:11)
[2023-05-25] MEDS ORDERED: DIPHENHYDRAMINE 50 MG/ML VIAL ONE (16:52)
[2023-05-25] MEDS ORDERED: METHYLPREDNISOLONE 125 MG INJ ONE (16:54)
[2023-05-25] MEDS ORDERED: IPRATROPIUM BROM 0.5MG/2.5ML NEB ONE (17:06)
[2023-05-25] MEDS ORDERED: ALBUTEROL 2.5 MG/3 ML NEB SOL NEB STA (17:07)
[2023-05-25] MEDS ORDERED: IPRATROPIUM BROM 0.5MG/2.5ML ONE (17:08)
[2023-05-25] MEDS ORDERED: ALBUTEROL 2.5 MG/3 ML NEB SOL ONE (17:08)
[2023-05-25] MEDS ORDERED: FAMOTIDINE 20 MG/2 ML VIAL IV ONE ×2 (17:24→17:27)
--- NOTE | 2023-05-25 19:45 | OP ---
Date of Procedure: 05/25/2023 Surgeon: ANGELA FRITZ Procedures Performed: 1.Selective coronary angiogram. 2.Left heart catheterization. Indication: Unstable angina with abnormal stress test. Access: Right radial artery 6-Jordanian closed with TR band. Complications: None. Bleeding: Less than 20 mL. Anesthesia: Total sedation time was 30 minutes. Description Of Procedure: After risks, benefits, alternatives were explained, patient agreed to proc edure and signed informed consent. The patient was brought into cardiac catheterization laboratory, prepped and draped in the usual sterile fashion. Then, I accessed the right radial artery using [employer] atriAugment micropuncture kit, placed a 6-Jordanian Slender sheath and took a 5-[place]ian [place] 4.0 catheter into the aortic root, engaged the left main, took standard views and then in the RCA and took standard vi ews and over the wire, the catheter was pushed across the aortic valve into the LV, measured the LVED P and pullback did not record any gradient. Then I removed the catheter and the sheath, placed TR ba nd with good hemostasis. Findings: 1.Left main; large and normal. 2.LAD; moderate to large size vessel that is normal. Normal diagonal branches. 3.Left circumflex; large and dominant and normal. 4.RCA; small, nondominant, and normal. 5.Normal LVEDP at 8 mmHg. Conclusion: 1.Normal coronary arteries and falsely positive stress test. 2.Normal LVEDP. Recommendation: Search for other causes of chest pain. From Cardiology standpoint, patient can be r eleased. /ERVIN Voice ID: [id number] Report ID: [id number]
--- NOTE | 2023-05-25 19:54 | CON ---
Date of Consult: 05/24/2023 Reason For Consultation: Chest pain. History Of Present Illness: A 42-year-old female with history of Gurmeet-Danlos syndrome, hypothyroidism, mitral valve prolapse, was seen initially in the office for chest pain. Stress test was abnormal and scheduled for heart catheterization and, however, she kept having chest pain on and off, left-sided, pressure-like, radiates to the left shoulder surgery, presented to the emergency room yesterday and was hospitalized. Cardiac enzymes have been negative. I saw her by bedside. No active chest pain. Past Medical History: As outlined above in the HPI. Medication: Refer to reconciliation sheet for detailed list. Allergies: SHE IS ALLERGIC TO MORPHINE AND SULFA. Family History: No mature coronary artery disease or cancer. Social History: She does not smoke or drink. Does not use any drugs. Review of Systems: All systems reviewed. They were negative except for mentioned in HPI. Physical Examination: Vital Signs: Reviewed. Head and Neck: Pupils are equal, reactive to light. Intact eye movements. Neck: No JVD. No cervical lymphadenopathy. Neck is supple. Thyroid is not enlarged. Lungs: Clear to auscultation bilaterally. No rhonchi, rales, or crackles. No accessory muscle use. Heart: Regular rate and rhythm. No extra sounds. Abdomen: Soft, nontender. Bowel sounds positive. No organomegaly. No masses or hernia. No rigidity or rebound. Extremities: No edema, clubbing, cyanosis. Intact pulses. Skin: No rash. Neurologic: Alert, awake, oriented x3. No acute focal deficits appreciated. Lymph nodes: No cervical or axillary lymphadenopathy. Investigations: Troponins are negative. BUN is 15, creatinine 0.75. Assessment/recommendation: 1. Unstable angina with abnormal stress test. Given p.o. and plan for coronary angiogram today, and just started baby aspirin. 2. Hypothyroidism. Check TSH. 3. Mitral valve prolapse, . SR/MODL Voice ID: [id number] Report ID: [id number] MTDD
[2023-05-26 03:12] LABS: Absolute Lymphocytes (CBC) 0.9 K/uL (0.7-4.9); Lymphocytes % 21.2 % (15.3-44.8); MCV 82.3 fL (80-100); Platelets 277 thou/uL (152-406)
[2023-05-26 03:14] LABS: Potassium 4.2 mEq/L (3.5-5.1)
[2023-05-26 09:27] VITALS: BP 103/48; TEMP 97.4
[2023-05-26 11:38] VITALS: O2SAT 98
--- NOTE | 2023-05-26 17:39 | EKG ---
Test Date: 2023-05-24 Test Time: 11:30:07 Hamper Maker Machine: JOHANA MEASUREMENT RESULTS: Intervals: Rate: 92 NE: 140 QRSD: 78 QT: 374 QTc: 462 [facility]: P: 59 NE: 140 QRS: 61 T: 39 INTERPRETIVE STATEMENTS: Normal sinus rhythm with sinus arrhythmia Nonspecific ST abnormality Abnormal ECG Compared to ECG 03/10/2023 22:46:41 ST (T wave) deviation now present Electronically Signed On 05-26-23 17:35:46 ELECTROCARDIOGRAPH OPERATOR by Glenn Ernandez
--- NOTE | 2023-05-26 18:16 | P.DS ---
Admission Date: 05/24/23 Discharge Date: 05/26/23 Disposition: ROUTINE DISCHARGE Discharge Condition: FAIR Reason for Admission: Chest pain - Problems (1) Chest pain Status: Acute (2) Hypothyroidism Status: Acute Brief History of Present Illness: 42-year-old female with history of Gurmeet-Danlos syndrome, asthma, hypothyroidism, mast cell activation disorder, SVT presented to emergency department chief complaint of chest pain. She reported ongoing episodes of chest pain with exertion with periodic episodes of syncope associated with this for the last few years. She was seen by cardiology in clinic and had an abnormal stress test last week was told she need to have a heart catheterization. She has been having increasing chest pain in frequency duration and severity. She was evaluated in the emergency department. Initial high-sensitivity troponin 8.0 potassium 3.2. EKG without STEMI criteria chest x-ray negative for acute findings. Patient was placed on observation for ACS rule out. Hospital Course: Troponin trended negative. Patient was seen and evaluated by cardiology Dr. Ernandez who performed cardiac catheterization which reported normal coronary arteries. Patient was monitored overnight after cardiac catheterization due to concern for contrast allergy given her allergy to iodine. She has low normal BP which patient stated is due to autonomic failure and for which she takes droxidopa. Thyroid function test showed markedly suppressed TSH and low T4 indicating primary hypothyroidism in which case patient thyroid replacement therapy to be considered ineffective. Patient is advised to follow-up with an operations supervisor chemical cleaning for further evaluation and adjustment in her thyroid replacement therapy. Patient has been asymptomatic during the hospital stay and deemed stable for discharge. Vital Signs/Physical Exam: Temp Pulse Resp BP Pulse Ox 97.4 F 58 16 103/48 L 98 05/26/23 08:00 05/26/23 08:00 05/26/23 08:00 05/26/23 08:00 05/26/23 08:00 General: Alert, In no apparent distress, Oriented x3 HEENT: Mucous membr. moist/pink Neck: Supple, JVD not distended Respiratory: Clear to auscultation bilaterally, Normal air movement Cardiovascular: No edema, Regular rate/rhythm, Normal S1 S2 Gastrointestinal: Normal bowel sounds, Soft and benign, Non-distended, No tenderness Musculoskeletal: No swelling Integumentary: No rashes Neurological: Normal strength at 5/5 x4 extr Laboratory Data at Discharge: WBC 4.40 thou/uL (4.3-10.9) 05/26/23 01:46 Hgb 12.6 g/dL (12.0-15.0) 05/26/23 01:46 Hct 37.0 % (36.0-45.0) 05/26/23 01:46 Plt Count 277 thou/uL (152-406) 05/26/23 01:46 PT 12.1 SECONDS (9.5-12.5) 05/24/23 11:40 INR 1.10 05/24/23 11:40 Sodium 137 mEq/L (136-145) 05/26/23 01:46 Potassium 4.2 mEq/L (3.5-5.1) D 05/26/23 01:46 BUN 13 mg/dL (7-18) 05/26/23 01:46 Creatinine 0.72 mg/dL (0.55-1.02) 05/26/23 01:46 Glucose 195 mg/dL (74-106) H 05/26/23 01:46 Magnesium 1.6 mg/dL (1.6-2.4) 05/24/23 11:40 Total Bilirubin 0.4 mg/dL (0.2-1.0) 05/24/23 11:40 AST 14 U/L (15-37) L 05/24/23 11:40 ALT 24 U/L (13-56) 05/24/23 11:40 Alkaline Phosphatase 84 U/L (45-117) 05/24/23 11:40 Triglycerides 98 mg/dL (<150) 05/25/23 03:53 Cholesterol 190 mg/dL (<200) 05/25/23 03:53 HDL Cholesterol 63 mg/dL (40-60) H 05/25/23 03:53 Cholesterol/HDL Ratio 3.02 05/25/23 03:53 Lipase 23 U/L (13-75) 05/24/23 11:40 Home Medications: Albuterol Inhaler [Ventolin Inhaler*] 2 puff NEB DAILY PRN 05/25/23 Cetirizine HCl [Zyrtec] 10 mg PO BEDTIME 05/25/23 Droxidopa 200 mg PO TID 05/25/23 Erenumab-Aooe [Aimovig Autoinjector] 140 mg SQ DIRECTED 05/25/23 Estrogens, Conjugated [Premarin] 1.25 mg PO DAILY 05/25/23 Famotidine [Pepcid AC] 10 mg PO BEDTIME 05/25/23 Liothyronine Sodium [Cytomel] 5 mcg PO BID 05/25/23 Loratadine [Claritin] 1 tab PO DAILY 05/25/23 Montelukast Sodium [Singulair] 10 mg PO BEDTIME 05/25/23 Ondansetron HCl 4 mg PO DAILY PRN 05/25/23 Prednisolone Acetate/Pf [Prednisolone Acet 1% Eye Drop] 2 gtts EACH EYE DAILY PRN 05/25/23 Rimegepant Sulfate [Nurtec Odt] 1 tab PO BEDTIME 05/25/23 Thyroid,Pork [[place] Thyroid] 120 mg PO 0800 05/25/23 Topiramate [Topamax] 200 mg PO BID 05/25/23 hydrOXYzine HCL [Atarax*] 25 mg PO DAILY 05/25/23 hydrOXYzine HCL [Atarax] 50 mg PO BEDTIME 05/25/23 Physician Discharge Instructions: PROBLEM: Chest Pain GOAL: Clear understanding of disease process INSTRUCTIONS: Follow up with PCP in 1-2 weeks Follow up with Cotton Feeder Return to ER if symptoms worsen. Diet: AHA Activity: Ad justin IMMUNIZATION Influenza Vaccine Indicated: No Influenza Vaccine Given: Date Given: Pneumonia Vaccine Indicated: No Pneumonia Vaccine Given: Date Given: Your lab work indicate your TSH is significantly suppressed to the point your overall free T4 level is low. You need to see an Cotton Feeder to adjust your thyroid hormone supplement regimen. Referral: [facility] Endocrinology, [place], [place]. Diet: AHA Activity: Ad justin Followup: NONE,NONE [Primary Care Provider] - Time spent managing pt's care (in minutes): 26
== END 2023-05-26 09:50 | disposition home or self-care (01) ==
LOC: ER 10:46 → ERHOLD 16:13 → 2ND 05-25 13:09
PROVIDERS: ADMIT Hospitalist; ATTEND Internal Medicine
DX: I20.0 Unstable angina (principal); R94.39 Abnormal result of other cardiovascular function study; T50.8X5A Adverse effect of diagnostic agents, initial encounter; Y92.239 Unspecified place in hospital as the place of occurrence of the external cause; I34.1 Nonrheumatic mitral (valve) prolapse; E03.9 Hypothyroidism, unspecified; I95.9 Hypotension, unspecified; Q79.60 Ehlers-Danlos syndrome, unspecified; J45.909 Unspecified asthma, uncomplicated; D89.40 Mast cell activation, unspecified; Z79.899 Other long term (current) drug therapy; Z88.2 Allergy status to sulfonamides; Z88.5 Allergy status to narcotic agent; Z88.8 Allergy status to other drugs, medicaments and biological substances
CPT/HCPCS: 93005; 85025 ×3; 80048 ×3; 36415 ×2; 83735; 85610; 80061; 85379; 80076; 84443; 84484 ×3; 84439; 83690; 83880; 71045; 93458; 76937; 99285; C1893; Q9966; J1644; J3480; J2001; J1200; J7613; J7644; J1650; J2250; J3010; J2930; J7040; G0378; J0461

== ENCOUNTER 2023-09-05 20:47 | Inpatient (IN) | payer OTHER ==
--- OUTSIDE RECORDS SUMMARY | 2023-09-05 20:50 | XMS REPORT | Continuity of Care Document ---
Author Name Unknown Address [address] [facility]. [address] th[address] Address 1200 [facility] 1 495 [place] [address] Care Team Providers Care Baller Tender Name Role Phone Pcp, Patient Does Not Have A Primary Care Physic archie Trinidad Bernal Attending Clinician Unavailable MANDI TURK Attending Clinician Unavailable Mandi Turk MD Attending Clinician Lab, Ang - Db Attending Clinician Unavailable Doctor Unassigned, [place] Attending Clinician U BLACK Chavez Attending Clinician Unavailable [id number] Attending Clinician Unavailable MACIEL MONACO Attending Clinician Unavailable Payers Payer Name Policy Type Policy Number Effective Date Expirati on Date Source [employer] PPO [id number] 2022 00:00:00 CIGNA-CIGNA/PPO 2 [id number] 2023 00:00:00 Problems Condition Name Condition Details Condition Category Status Onset Date Resolution Date Last Treatment Date Treating Clinician Comments Source Mitral and aortic regurgitat ion Mitral and aortic regurgitat ion Disease Active 3-18 00:00: 00 [facility] Allergic rhinitis Allergic rhinitis Disease Active 2022-05 0-02 00:00: 00 [facility] Asthma Asthma Disease Active 2022-05 0-02 00:00: 00 [facility] GERD (gastroeso phageal reflux disease) GERD (gastroeso phageal reflux disease) Disease Active 2022-05 0-02 00:00: 00 [facility] Hormone replacemen t therapy Hormone replacemen t therapy Disease Active 2022-05 0-02 00:00: 00 [facility] 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 2022-05 0-02 00:00: 00 [facility] Migraine Migraine Disease Active 2022-05 0-02 00:00: 00 [facility] Paroxysmal supraventr icular tachycardi a Paroxysmal supraventr icular tachycardi a Disease Active 2022-05 0- 00:00: 00 [facility] 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 2022-05 0- 00:00: 00 Terri Seybold - Externa l Hypothyroi dism (acquired) Hypothyroi dism (acquired) Disease Active 2022-05 0- 00:00: 00 Terri Seybold - Externa l Orthostati c hypotensio n Orthostati c hypotensio n Disease Active 2022-05 0- 00:00: 00 Terri Seybold - Externa l Mitral valve prolapse Mitral valve prolapse Disease Active 2022-05 0- 00:00: 00 Terri Seybold - Externa l SVT (supravent ricular tachycardi a) SVT (supravent ricular tachycardi a) Disease Active 2022-05 0- 00:00: 00 Terri Seybold - Externa l 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 04 00:00: 00 [facility] Hypothyroi dism (acquired) Hypothyroi dism (acquired) Disease Active 06-03 00:00: 00 [facility] Allergies, Adverse Reactions, Alerts Allergy Name Allergy Type Status Severity Reaction(s) Onset Date Inactive Date Treating Clinician Comments Source BEE STING / VENOM DRUG INGREDI Active SOB 08-01 00:00: 00 [facility] Bee Sting / Venom Propensi ty to adverse reaction s Active Shortness of Breath 08-01 00:00: 00 [facility] Iodine Propensi ty to adverse reaction s Active Anaphylaxis 08-01 00:00: 00 [facility] Morphine Propensi ty to adverse reaction s Active Anaphylaxis 0 3-18 00:00: 00 [facility] Sulfa (Sulfona mide Antibiot ics) Propensi ty to adverse reaction s Active Hives 0 3-18 00:00: 00 [facility] SULFA (SULFONA MIDE ANTIBIOT ICS) Drug Class Active Hives 0 3-18 00:00: 00 [facility] MORPHINE DRUG INGREDI Active Anaphylaxis 0 3-18 00:00: 00 [facility] IODINE DRUG INGREDI Active Anaphylaxis 0 3-18 00:00: 00 [facility] Bee Venom Propensi ty to adverse reaction s Active Anaphylaxis 2022-05 0-02 00:00: 00 Terri Velazco - Rodrígueza l Honey Propensi ty to adverse reaction s Active Anaphylaxis 2022-05 0-02 00:00: 00 Terri Arreguina l Morphine Propensi ty to adverse reaction s Active Anaphylaxis 2022-05 0-02 00:00: 00 Terri Arreguina l Sulfa Drugs Propensi ty to adverse reaction s Active Hives 2022-05 0-02 00:00: 00 Terri Arreguina l NO KNOWN ALLERGIE S Drug Class Active [facility] Social History Social Habit Start Date Stop Date Quantity Comments Source Sexual orientation U [facility] History of Social function 2023-08-02 00:00:00 2023-08-02 00:00:00 [facility] Alcohol intake 2023-02-15 00:00:00 2023-02-15 00:00:00 Current drinker of alcohol (finding) Terri Velazco - External Education 2023-02-15 00:00:00 2023-02-15 00:00:00 18 Terri Velazco - External Alcohol Comment 2023-02-15 00:00:00 2023-02-15 00:00:00 rarely Terri Velazco - External Tobacco use and exposure 2023-02-15 00:00:00 2023-02-15 00:00:00 Smokeless tobacco non-user Terri Seybold - External Sex Assigned At 1980 00:00:00 1980 00:00:00 [facility] Smoking Status Start Date Stop Date Source Tobacco smoking consumption unknown [facility] Never smoked tobacco Terri Velazco - External Medications Ordered Medication Name Filled Medication Name Start Date Stop Date Current Medication? Ordering Clinician Indication Dosage Frequency Signature (SIG) Comments Components Source thyroid (ARMOUR THYROID) 60 mg tablet 08-10 14:57: 06 08-10 00:00 :00 No 60mg Take 1 tablet by mouth every morning. [facility] thyroid (ARMOUR THYROID) 60 mg tablet 08-10 00:00: 00 Yes 60mg Take 1 tablet by mouth every morning. Take with 15mg tablet to equal 75mg. [facility] thyroid (ARMOUR THYROID) 15 mg tablet 08-02 00:00: 00 Yes [id number] 15mg Take 1 tablet by mouth every morning. [facility] hydrOXYzine 25 mg tablet 08-01 13:41: 35 Yes 25mg Take 1 tablet by mouth in the morning and 1 tablet in the evening. 25 mg in the morning and 50 mg at night [facility] hydrOXYzine 25 mg tablet 08-01 13:40: 53 08-01 00:00 :00 No 25mg Take 1 tablet by mouth every 6 (six) hours. [facility] hydrOXYzine 50 mg capsule 08-01 13:40: 44 08-01 00:00 :00 No 50mg Take 1 capsule by mouth 3 (three) times daily as needed for Itching. [facility] atenoloL 25 mg tablet 08-01 13:39: 51 Yes 25mg Take 1 tablet by mouth in the morning. [facility] cyclobenzap rine 5 mg tablet 08-01 13:39: 51 Yes 5mg Take 1 tablet by mouth as needed. [facility] liothyronin e 5 mcg tablet 08-01 13:28: 32 08-01 00:00 :00 No 5ug Take 1 tablet by mouth in the morning. [facility] thyroid (ARMOUR THYROID) 60 mg tablet 08-01 13:16: 50 Yes 60mg Take 1 tablet by mouth every morning. [facility] conjugated estrogens (PREMARIN) 1.25 mg tablet 08-01 13:16: 50 Yes 1.25mg Take 1 tablet by mouth in the morning. [facility] topiramate 200 mg Cp24 08-01 13:16: 50 Yes Take by mouth. [facility] cetirizine 5 mg/5 mL solution 08-01 13:16: 50 Yes 2.5mg Take 2.5 mL by mouth in the morning. [facility] loratadine (CLARITIN) 5 mg/5 mL solution 08-01 13:16: 50 Yes Take by mouth daily. [facility] famotidine (PEPCID) 20 mg tablet 08-01 13:16: 50 Yes 20mg Take 1 tablet by mouth in the morning and 1 tablet in the evening. [facility] montelukast (SINGULAIR) 10 mg tablet 08-01 13:16: 50 Yes 10mg Take 1 tablet by mouth. [facility] rimegepant (NURTEC ODT) 75 mg TbDL 08-01 13:16: 50 Yes Take by mouth. [facility] Ondansetron 4 mg Film 08-01 13:16: 50 Yes Take by mouth. [facility] erenumab-ao oe (AIMOVIG AUTOINJECTO R) 140 mg/mL AtIn 08-01 13:16: 50 Yes inject under the skin. [facility] epinephrine (EPIPEN INJECTION) 08-01 13:16: 50 Yes Inject as directed. [facility] Famotidine (Pepcid) 20 MG oral tablet 2022-05 0 12:02: 35 02-15 00:00 :00 No 20mg Take 1 tablet (20 mg total) by mouth 2 times daily. Terri gallagher Thyroid 120 MG oral Tablet 2022-05 12:02: 35 02-15 00:00 :00 No 1{tbl} Take 1 tablet by mouth daily. Terri gallagher EPINEPHrine (EPIPEN IJ) 2022-05 11:51: 05 02-15 00:00 :00 No Inject as directed. Terri gallagher Fluconazole (DIFLUCAN OR) 2022-05 11:50: 27 02-15 00:00 :00 No Take by mouth. Terri gallagher Cetirizine HCl (ZyrTEC) 10 MG oral Chewable Tablet 2022-05 11:41: 56 Yes [id number] 10mg Take 1 tablet (10 mg total) by mouth daily. Terri gallagher Loratadine (Claritin) 10 MG oral Capsule 2022-05 11:41: 56 Yes [id number] 10mg Take 1 capsule (10 mg total) by mouth daily. Terri gallagher liothyronin e 5 mcg tablet 2022-05 00:00: 00 Yes 5ug Take 1 tablet by mouth in the morning and 1 tablet in the evening. [facility] droxidopa 200 mg Cap 2022-05 00:00: 00 Yes 200mg Take 200 mg by mouth in the morning and 200 mg at noon and 200 mg in the evening. [facility] Topiramate 200 MG oral Tablet 2022-05 00:00: 00 Yes [id number] 200mg Take 1 tablet (200 mg total) by mouth 2 times daily. Terri gallagher hydrOXYzine HCl 25 MG oral Tablet 2022-05 00:00: 00 Yes [id number] 25 mg am and 50 mg night. Terri gallagher Thyroid 120 MG oral Tablet 2022-05 00:00: 00 Yes [id number] 1{tbl} Take 1 tablet by mouth daily. Terri gallagher Famotidine (Pepcid) 20 MG oral tablet 2022-05 00:00: 00 Yes [id number] 20mg Take 1 tablet (20 mg total) by mouth 2 times daily. Terri gallagher Cyclobenzap rine HCl 5 MG oral Tablet 2022-05 00:00: 00 Yes [id number] 5mg QD Take 1 tablet (5 mg total) by mouth nightly as needed for muscle spasms. Terri gallagher Atenolol 25 MG oral Tablet 2022-05 00:00: 00 Yes [id number] 25mg Take 1 tablet (25 mg total) by mouth daily. Terri gallagher EPINEPHrine 0.3 MG/0.3 ML IJ SOAJ 2022-05 00:00: 00 Yes [id number] 359202 .3mg Inject 0.3 mL (0.3 mg total) into the muscle as needed for anaphylaxi s 1 time only. Terri gallagher Estrogens Conjugated (Premarin) 1.25 MG oral Tablet 2022-05 00:00: 00 Yes [id number] 1.25mg Take 1 tablet (1.25 mg total) by mouth daily. Terri gallagher Liothyronin e Sodium 5 MCG oral Tablet 2022-05 00:00: 00 02-15 00:00 :00 No 5ug Take 1 tablet (5 mcg total) by mouth 2 times daily. Terri gallagher Cyclobenzap rine HCl 5 MG oral Tablet 02-13 00:00: 02-15 00:00 :00 No Terri gallagher hydrOXYzine HCl 25 MG oral Tablet 02-13 00:00: 00 02-15 00:00 :00 No 25mg Take 1 tablet (25 mg total) by mouth 2 times daily 25 mg am and 50 mg night. Terri gallagher Montelukast (SINGULAIR) 10 MG oral Tablet tablet 02-10 00:00: 00 Yes [id number] 10mg Take 1 tablet (10 mg total) by mouth daily. Terri gallagher Atenolol 25 MG oral Tablet 02-10 00:00: 00 02-15 00:00 :00 No Terri gallagher Droxidopa 200 MG oral Capsule 01-21 00:00: 00 02-15 00:00 :00 No 200mg Take 200 mg by mouth 3 times daily. Terri gallagher Benedict Saline Nasal nasal Gel 01-08 00:00: 00 Yes [id number] Terri gallagher Premarin 1.25 MG oral Tablet 12-29 00:00: 00 02-15 00:00 :00 No 1.25mg Take 1 tablet (1.25 mg total) by mouth daily. Terri gallagher Topiramate 200 MG oral Tablet 12-17 00:00: 00 02-15 00:00 :00 No 20mg Take 20 mg by mouth 2 times daily. Terri gallagher Nurtec 75 MG oral TABLET DISPERSIBLE 12-15 00:00: 00 Yes [id number] 75mg Take 1 tablet (75 mg total) by mouth as needed. Terri gallagher Immunizations Ordered Immunization Name Filled Immunization Name Date Status Comments Source Covid-19 Vaccine Moderna (Spikevax), Mrna-lnp, Kevin Protein, Pf Unknown Completed Terri Sosa Covid-19 Vaccine Moderna (Spikevax), Mrna-lnp, Kevin Protein, Pf Unknown Completed Terri Sosa Covid-19 Vaccine (Pfizer), Mrna-lnp, Kevin Protein, Pf, 30mcg/0.3ml,IM Unknown Completed Terri Campo d - External COVID-19 BIVALENT VACCINE MODERNA Unknown Completed Terri Cotto ld - External Influenza, Injectable, Mdck, Quadrivalent With Preservative Unknown Completed Terri Sosa Tdap- (Boostrix, Adacel) Unknown Completed Terri Sosa Vital Signs Vital Name Observation Time Observation Value Comments S kj Systolic blood pressure 2023-08-02 18:08:00 131 mm[Hg] [facility] Diastolic blood pressure 2023-08-02 18:08:00 86 mm[Hg] [facility] Heart rate 2023-08-02 18:08:00 63 /[facility] 2023-08-02 18:08:[address] [facility] weight 2023-08-02 18:08:[address] [facility] BMI 2023-08-02 18:08:00 20.91 kg/m2 [facility] Oxygen saturation in Arterial blood by Pulse oximetry 2023-08-02 18:08:00 100 /min [place] [facility] Systolic blood pressure 2023-02-15 16:32:00 138 mm[Hg] Terri Seybo ld - External Diastolic blood pressure 2023-02-15 16:32:00 78 mm[Hg] Terri Seybo ld - External Heart rate 2023-02-15 16:32:00 72 /min Kelse y Seybold - External Body temperature 2023-02-15 16:32:00 36.72 Bryanna Terri Seybold - External Respiratory rate 2023-02-15 16:32:00 14 /min Terri Seybold - External Body height 2023-02-15 16:32:00 172.7 cm Roxanne ey Seybold - External Body weight 2023-02-15 16:32:00 65.772 kg Roxanne ey Seybold - External BMI 2023-02-15 16:32:00 22.05 kg/m2 Roxanne ey Seybold - External Procedures Procedure Date / Time Performed Performing Clinician Source AUTHORIZATION TO RELEASE PHI TO [facility] 2023-08-02 05:01:00 Doctor Unassigned, [place] [facility] Encounters Start Date/Time End Date/Time Encounter Type Admission Type Attending Clinicians Care Facility Care Department Encounter ID Source 2023-07-20 13:43:01 Outpatient Trinidad Bernal [facility] [id number] [facility] 2023-06-08 14:12:00 [facility] [id number] [facility] 2024-01-31 09:00:00 2024-01-31 09:00:00 Outpatient MANDI CHENG [facility] [id number] [facility] 2023-08-03 00:00:00 2023-08-03 00:00:00 Telephone [place] [facility] 1.84.114 350.1.13.10 4.2.7.2.686 [id number] [facility] 2023-08-02 14:00:00 2023-08-02 14:15:00 Obstetrics Gyn Visit Lab, Ang - Chris [facility] 1.840.114 350.1.13.10 4.2.7.2.686 [id number] [facility] 2023-08-02 13:00:00 2023-08-02 13:43:41 Office Visit Burke [facility] 1.84.114 350.1.13.10 4.2.7.2.686 [id number] [facility] 2023-08-02 13:00:00 2023-08-02 13:43:41 Outpatient Deep MANDI TURK [facility] [id number] [facility] 2023-08-02 00:00:00 2023-08-02 00:00:00 Orders Only Doctor Unassigned, [place] [facility] 1.84.114 350.1.13.10 4.2.7.2.686 [id number] [facility] 2023-05-20 08:30:00 2023-05-20 08:30:00 Outpatient BLACK GALLAGHER [id number] Terri Velazco 2023-04-23 10:20:00 2023-04-23 10:20:00 Outpatient LAB90 TERRI MITCHELL [id number] Terri Velazco 2023-04-23 00:00:00 2023-04-23 00:00:00 Outpatient BLACK GALLAGHER [id number] Terri Velazco 2023-03-10 11:30:00 2023-03-10 11:30:00 Outpatient MACIEL MONACO [id number] Terri Velazco 2023-03-05 00:00:00 2023-03-05 00:00:00 Outpatient BLACK GALLAGHER [id number] Terri Velazco 2023-02-17 00:00:00 2023-02-17 00:00:00 Outpatient BLACK GALLAGHER [id number] Terri Velazco 2023-02-15 11:15:00 2023-02-15 11:15:00 Outpatient BLACK GALLAGHER [id number] Terri Velazco Notes Date/Time Note Provider Source 2023-08-11 14:57:18 ERvGrMeYyHFbIFnOEqT1W7V8NgIQedKFLXoM baYxOjPrppeSCnVpsKuZ3ohWaMyg6007-65- 27T14:57:18Addended by: MING LA on: 08/11/2023 02:57 PMModules accepted: Orders [id number] QwkihkyoHF7415-35-55H74:57:18Addendu [id number] .7.2.070021|[id number] for patient vqfm52700-8AtsiMTKICVRNEWOVgxzeyuiu C-CDA narrative [id number] Diane RN[address] Ok[id number] DXPMPWJYLXSQEVMPTRIVFU6108-25-21U21: 57:181.2.840.216188.1.72.3.15|1.2.84 0.747218.1.13.104.2.7.2.727879_20594 [id number] Ming Diane RN [facility] 2023-08-03 15:02:07 I5q2DfER3mmet1B0hrBQ5sUpnuYhtxJ7cEJW uj7WA6205tFlOzfuyS9CWOvEsE6l6728-14- 19T15:02:07 I called the patient and discussed with herFree T4 is low --> she was recently decreased from Mitchell thyroid 120 mg to 60 mg daily and CW cytomel 5 mcg BIDFor now we will add Mitchell thyroid 15 mg to be using along with Mitchell thyroid 60 mg so she will be on Mitchell thyroid 75 mg daily in addition to cytomel 5 mcg BIDWe will rechecl TFT in 6 weeksZuri Lynn ProfessorDivision of Endocrinology 84139-4Uiwckvdnj encounter HtyiTK4361-64-87Q14:14:50Telephone encounter NoteTXT1.2.840.597464.1.13.104.2.7.2 .831096|[id number] for patient azas69368-0KznxHSEHHJIJUUVOkyaihuxh C-CDA narrative text[address] If[id number] FHFVAZUBQEORWEXBTHXEYY7857-85-76Q12: 14:501.2.840.106756.1.72.3.15|1.2.84 0.504805.1.13.104.2.7.2.727879_20527 [id number] [facility] 2023-08-02 14:00:00 djU0vP6xyRZYbmEtnk0uHLlxn/cAjecdkC8Z dXxTg/g+sOKIZqfVCZC+MSbJI3IK3336-18- 18T14:00:00 Images from the original note were not included.Venipuncture collection performed by clean technique on the right anticubitus. Total of 1 attempts were made. Slight pressure and a bandage/dressing were applied to the site(s). The patient experienced no complications. The following specimens were processed according to instructions and sent to [facility] laboratories per lab order on 08/02/2023:LT BLUESST 2REDLAV 1PPTDK GREEN (LiHep)DK GREEN (SodH)GRAYDK BLUE (K2)DK BLUE (S)ACDBlood CultureNIPT/NTD [id number] IvzbJW8509-37-97U78:04:36Nurse NoteTXT1.2.840.734879.1.13.104.2.7.2 .953557|[id number] for patient seju94895-3Lqqaj NoteLNNARRATIVEFormatted C-CDA narrative textUT[address] Jw[id number] KKMPROZCNSWIEKIQSCWNXF3817-22-85F04: 04:361.2.840.399868.1.72.3.15|1.2.84 0.576254.1.13.104.2.7.2.727879_20515 [id number] [facility]"
[2023-09-05] MEDS ORDERED: FAMOTIDINE 20 MG/2 ML VIAL IV ONE (21:10)
[2023-09-05] MEDS ORDERED: PROMETHAZINE INJ 25 MG/ML AMP ONE (21:10)
[2023-09-05] MEDS ORDERED: KETOROLAC 30 MG/ML INJ ONE (21:10)
[2023-09-05] MEDS ORDERED: NA CHLORIDE 0.9% 1,000 ML ONE (21:10)
[2023-09-05 21:25] LABS: Absolute Eosinophils 0.1 K/uL (0-0.5); Absolute Monocytes 0.4 K/uL (0.1-1.3); Absolute Neutrophil 5.7 K/uL (1.8-8.0); Basophils % 0.4 % (0-1.3); Hematocrit 41.9 % (36.0-45.0); Hemoglobin 14.4 g/dL (12.0-15.0); Lymphocytes % 24.3 % (15.3-44.8); MCH 28.3 pg (27.0-35.0); MCHC 34.4 g/dL (32.0-36.0); MCV 82.1 fL (80-100); MPV 8.3 fL (7.6-11.3); Monocytes % 4.4 % (3.3-12.3); Neutrophils % 69.9 % (41.7-73.7); Nucleated Red Blood Cells % 0.1 % (0-0); Platelets 345 thou/uL (152-406); Red Cell Distribution Width 12.4 % (12.1-15.2)
[2023-09-05 22:05] LABS: Albumin 3.6 g/dL (3.4-5.0); Albumin/Globulin Ratio 0.9 (1.1-1.8); Anion Gap 10.6 mEq/L (5.0-15.0); Bilirubin Total 0.4 mg/dL (0.2-1.0); Globulin 4.2 g/dL (2.3-3.5); Potassium 3.6 mEq/L (3.5-5.1); Protein, Total 7.8 g/dL (6.4-8.2)
[2023-09-05 22:07] LABS: Specific Gravity 1.019 (1.005-1.030); Sqamous Epithelial None Seen /HPF (None Seen); Urine Bacteria None Seen /HPF (<20); Urine Bilirubin NEGATIVE (Negative); Urine Blood Negative (Negative); Urine Clarity Extremely Turbid (Clear); Urine Color Yellow (Yellow); Urine Culture Reflex Order NOT NEEDED; Urine Glucose NEGATIVE (Negative); Urine Ketones 1+ (Negative); Urine Microscopic Reflex YN ORDER UMIC; Urine Nitrite NEGATIVE (Negative); Urine Protein 1+ (Negative); Urine RBC None Seen /HPF (None Seen); Urine Urobilinogen Normal (Normal); Urine WBC None Seen /HPF (<5); Urine pH 8.5 (5.0-7.0)
--- NOTE | 2023-09-05 22:57 | RAD REPORT ---
EXAM DESCRIPTION: CTAbdomen Pelvis Wo Contrast - 09/05/2023 10:45 pm CLINICAL HISTORY: ABD PAIN COMPARISON: No comparisons TECHNIQUE: CT of the abdomen and pelvis was performed. All CT scans are performed using dose optimization technique as appropriate and may include automated exposure control or mA/KV adjustment according to patient size. FINDINGS: Lower chest: Bilateral breast prostheses. Liver: No acute abnormality or suspicious lesions. Biliary: Cholecystectomy Stomach: No significant focal abnormality. Duodenum: No significant focal abnormality. Pancreas: No significant abnormality. Spleen: No significant abnormality. Adrenal: No suspicious lesions. Kidney/ureter: No hydronephrosis. Punctate stones lower pole of both kidneys Retroperitoneum: No retroperitoneal adenopathy. Vascular: No aneurysm. Bowel: Dilated small bowel in the central abdomen with smooth transition point. The dilated small bow el measures approximately 3 cm. Appendectomy. Peritoneum: No ascites or free air. Bladder: Grossly unremarkable. Reproductive: Hysterectomy. Bones: No acute fracture. Other: n/a IMPRESSION: Small bowel dilatation with smooth transition point in the central abdomen. This could r eflect an early mechanical small bowel obstruction versus ileus. Nonobstructive nephrolithiasis. Cholecystectomy and appendectomy.
--- NOTE | 2023-09-05 23:42 | EDPHYS ---
Physician Documentation [facility] Name: Gisella Smith Age: 42 yrs Sex: Female : 1980 Arrival Date: 09/05/2023 Time: 20:47 Bed 6 Private MD: ED Physician Hector Wells HPI: 09/04 21:00 This 42 yrs old Female presents to ER via Unassigned with complaints of kb Nausea/Vomiting, Abdominal Pain, [facility] sent patient to be evaulated for possible Pancreatitis. 21:00 Pt is a 42 year old female who presents for diarrhea, vomiting and diffuse abd pain for kb 2 days. Denies fever. States she has taken 8mg of zofran with no relief. Went to Urgent care for fluids, but they told her she needed to come be seen here. . 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 - Infectious Disease History:: Denies. - Social history:: Smoking status: Patient denies any tobacco usage or history of. Patient uses alcohol, but reports only rare drinking. Patient/guardian denies using street drugs. ROS: 21:00 Constitutional: As per HPI kb Exam: 21:00 Constitutional: This is a well developed, well nourished patient who is awake, alert, kb and in no acute distress. Head/Face: Normocephalic, atraumatic. ENT: Moist Mucous membranes Cardiovascular: Regular rate Respiratory: Respirations even and unlabored. No increased work of breathing. Talking in full sentences Skin: Warm, dry with normal turgor. Normal color. MS/ Extremity: Pulses equal, no cyanosis. Neurovascular intact. Full, normal range of motion. Neuro: Awake and alert, GCS 15, oriented to person, place, time, and situation. Moves all extremities. Normal gait. 21:00 Abdomen/GI: Inspection: abdomen appears normal, Bowel sounds: normal, Palpation: soft, in all quadrants, mild abdominal tenderness, in the right upper quadrant and left lower quadrant, Vital Signs: 20:58 BP 121 / 84; Pulse 92; Resp 16; Temp 97.3(TE); Pulse Ox 99% on R/A; Weight 58.97 kg km8 (R); Height 5 ft. 8 in. (R); Pain 7/10; 22:01 BP 113 / 84; Pulse 76; Resp 18 S; Pulse Ox 99% on R/A; lg3 20:58 Body Mass Index 19.77 (58.97 kg, 172.72 cm) km8 20:58 Pain Scale: Adult km8 MDM: 20:53 Patient medically screened. kb 21:05 Data reviewed: vital signs, nurses notes. kb 23:39 Differential diagnosis: Nonspecific abd pain, colitis, SBO. Consideration of kb Admission/Observation Patient was admitted/placed on observation. Escalation of care including admission/observation considered. Management of patient was discussed with the following: Hospitalist: Dr Bradford accepts pt for admission. States he will consult surgery.. Counseling: I had a detailed discussion with the patient and/or guardian regarding the historical points, exam findings, and any diagnostic results supporting the discharge/admit diagnosis, lab results, radiology results, the need for further work-up and treatment in the hospital. 09/04 20:54 Order name: CBC with Diff; Complete Time: 21:44 kb 09/04 20:54 Order name: CMP; Complete Time: 22:07 kb 09/04 20:54 Order name: Lipase; Complete Time: 22:07 kb 09/04 20:54 Order name: Urinalysis w/ reflexes; Complete Time: 22:11 kb 09/05 00:09 Order name: Urinalysis w/ reflexes EDMS 09/05 00:09 Order name: CBC with Automated Diff EDWI 09/05 00:09 Order name: CBC with Automated Diff EDMS 09/05 00:09 Order name: Comprehensive Metabolic Panel EDMS 09/05 00:09 Order name: Comprehensive Metabolic Panel EDWI 09/04 22:44 Order name: Abdomen ; Complete Time: 23:05 EDMS 09/05 00:09 Order name: CONS Physician Consult EDWI 09/04 20:54 Order name: IV Saline Lock; Complete Time: 21:15 kb 09/04 20:54 Order name: Labs collected and sent; Complete Time: 21:15 kb Administered Medications: 21:23 Drug: Famotidine IVP 20 mg IVP once; dilute with 10 mL 0.9% NaCl; give over 2 minutes lg3 Route: IVP; Site: right wrist; 09/05 02:32 Follow up: Response: No adverse reaction bm8 09/04 21:23 Drug: Ketorolac IVP 15 mg IVP once Route: IVP; Site: right wrist; lg3 09/05 02:32 Follow up: Response: No adverse reaction bm8 09/04 21:24 Drug: NS 0.9% IV 1000 ml IV at 1000 ml once Route: IV; Rate: 1000 ml; Site: right wrist;lg3 09/05 02:33 Follow up: Response: No adverse reaction; IV Status: Completed infusion; IV Intake: bm8 1000ml 09/04 21:59 Drug: Promethazine IVP 12.5 mg IVP once Route: IVP; Site: left forearm; vc1 09/05 02:32 Follow up: Response: No adverse reaction bm8 Disposition: 06:23 Co-signature as Attending Physician, Hector Wells MD I agree with the assessment sp4 and plan of care. I reviewed the patient's care provided by the Advanced Practice Provider and agree with the diagnosis and treatment plan. Disposition Summary: 09/05/23 23:41 Hospitalization Ordered Notes: Hospitalization Status: Observation kb Provider: Saul Bradford [facility] kb Condition: Stable kb Problem: new kb Symptoms: are unchanged kb Bed/Room Type: Standard Room Assignment: kb Diagnosis - Abdominal pain, Generalized - Early SBO vs ileus kb - Nausea with vomiting, unspecified kb Forms: - Medication Reconciliation Form kb - SBAR form kb - Leadership Thank You Letter kb Signatures: Dispatcher [employer] Jennyfer Moreno FNP-C FNP-Tiffanie Bay RN RN lg3 Rosalie Kat RN RN vc1 Hector Wells MD MD sp4 Gi Broderick RN RN km8 Michael Maloney RN bm8 Corrections: (The following items were deleted from the chart) 09/04 21:02 20:54 Test, Urine+UC.LAB.BRZ ordered. EDMS EDMS 22:44 22:07 Abdomen Pelvis W Con+CT.RAD.BRZ ordered. EDMS EDMS
--- NOTE | 2023-09-05 23:42 | ER ---
Nurse's Notes [facility] Name: Gisella Smith Age: 42 yrs Sex: Female : 1980 Arrival Date: 09/05/2023 Time: 20:47 Bed 6 Private MD: Diagnosis: Abdominal pain, Generalized-Early SBO vs ileus;Nausea with vomiting, unspecified Presentation: 09/04 20:58 Chief complaint: Patient states: abd pain starting Wednesday with vomiting starting km8 today. Coronavirus screen: Client denies travel out of the [place] in the last 14 days. Ebola Screen: No symptoms or risks identified at this time. Initial Sepsis Screen: Does the patient meet any 2 criteria? HR > 90 bpm. No. Patient's initial sepsis screen is negative. Does the patient have a suspected source of infection? No. Patient's initial sepsis screen is negative. Risk Assessment: Do you want to hurt yourself or someone else? Patient reports no desire to harm self or others. Onset of symptoms was September 11, 2023. 20:58 Method Of Arrival: Wheelchair km8 20:58 Acuity: DEONDRE 3 km8 Triage Assessment: 20:58 General: Appears in no apparent distress. uncomfortable, Behavior is calm, cooperative, km8 appropriate for age. 20:58 Pain: Complains of pain in abdomen Pain currently is 7 out of 10 on a pain scale. EENT: km8 No signs and/or symptoms were reported regarding the EENT system. Neuro: Level of Consciousness is awake, alert, obeys commands, Oriented to person, place, time, situation. Cardiovascular: Denies chest pain, shortness of breath, Patient's skin is warm and dry. Respiratory: Airway is patent Respiratory effort is even, unlabored, Respiratory pattern is regular, symmetrical. GI: Reports lower abdominal pain, upper abdominal pain, nausea, vomiting. : No signs and/or symptoms were reported regarding the genitourinary system. Derm: No signs and/or symptoms reported regarding the dermatologic system. Skin is intact, is healthy with good turgor, Skin is dry, Skin is pink, warm \T\ dry. normal, Skin temperature is warm. Musculoskeletal: No signs and/or symptoms reported regarding the musculoskeletal system. Range of motion: intact in all extremities. 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 - Infectious Disease History:: Denies. - Social history:: Smoking status: Patient denies any tobacco usage or history of. Patient uses alcohol, but reports only rare drinking. Patient/guardian denies using street drugs. Screenin:[address] [facility] ED Fall Risk Assessment (Adult) History of falling in the last 3 months, lg3 including since admission No falls in past 3 months (0 pts) Confusion or Disorientation No (0 pts) Intoxicated or Sedated No (0 pts) Impaired Gait No (0 pts) Mobility Assist Device Used No (0 pt) Altered Elimination No (0 pt) Score/Fall Risk Level 0 - 2 = Low Risk Oriented to surroundings, Maintained a safe environment, Educated pt \T\ family on fall prevention, incl call for assistance when getting out of bed, Assessed \T\ reinforced patient's understanding of fall precautions. Abuse screen: Denies threats or abuse. Denies injuries from another. Nutritional screening: No deficits noted. Tuberculosis screening: No symptoms or risk factors identified. Assessment: 21:25 General: Appears in no apparent distress. Behavior is cooperative, anxious, fussy. lg3 Pain: Complains of pain in abdomen Pain does not radiate. Also complains of nausea. Neuro: No deficits noted. Mccann Agitation-Sedation Scale (RASS): 0 - Alert and Calm Level of Consciousness is awake, alert, obeys commands, Oriented to person, place, time, situation. Cardiovascular: No deficits noted. Denies chest pain, shortness of breath, Capillary refill < 3 seconds Clubbing of nail beds is absent JVD is absent Patient's skin is warm and dry. Respiratory: No deficits noted. Airway is patent Respiratory effort is even, unlabored, Respiratory pattern is regular, symmetrical. GI: Abdomen is round non-distended, Bowel sounds present X 4 quads. Reports lower abdominal pain, upper abdominal pain, cramping, diarrhea, intolerance of fluids, intolerance of food, nausea, vomiting. : No deficits noted. No signs and/or symptoms were reported regarding the genitourinary system. EENT: No deficits noted. No signs and/or symptoms were reported regarding the EENT system. Derm: No deficits noted. No signs and/or symptoms reported regarding the dermatologic system. Skin is intact, is healthy with good turgor, Skin is dry, Skin is normal, Skin temperature is warm. Musculoskeletal: No deficits noted. No signs and/or symptoms reported regarding the musculoskeletal system. Circulation, motion, and sensation intact. Range of motion: intact in all extremities. 23:13 Reassessment: Patient appears in no apparent distress at this time. No changes from lg3 previously documented assessment. Patient and/or family updated on plan of care and expected duration. Pain level reassessed. Patient is alert, oriented x 3, equal unlabored respirations, skin warm/dry/pink. 09/05 00:28 Reassessment: pt decided that after discussing plan of care that she would just prefer [facility] to go home and do that there. made aware. pt signed ama form and left without incident. Vital Signs: 09/04 20:58 BP 121 / 84; Pulse 92; Resp 16; Temp 97.3(TE); Pulse Ox 99% on R/A; Weight 58.97 kg [facility] (R); Height 5 ft. 8 in. (R); Pain 7/10; 22:01 BP 113 / 84; Pulse 76; Resp 18 S; Pulse Ox 99% on R/A; lg3 20:58 Body Mass Index 19.77 (58.97 kg, 172.72 cm) 8 20:58 Pain Scale: Adult [facility] ED Course: 20:48 Patient arrived in ED. jj6 20:53 Jennyfer Kerns F[facility]-C [facility]. kb 20:53 Hector Wells MD is Attending Physician. kb 20:58 Arm band placed on right wrist. Patient placed in an exam room. km8 21:04 Triage completed. km8 21:15 CBC with Diff Sent. lg3 21:15 CMP Sent. lg3 21:15 Lipase Sent. lg3 21:19 Inserted saline lock: 20 gauge in right wrist, using aseptic technique. Blood collected.pm6 21:25 Patient has correct armband on for positive identification. Placed in gown. Bed in low lg3 position. Call light in reach. Side rails up X 1. Client placed on continuous cardiac and pulse oximetry monitoring. NIBP monitoring applied. Door closed. Noise minimized. Warm blanket given. 21:42 Michael Maloney, RN is Primary Nurse. bm8 21:54 Urinalysis w/ reflexes Sent. lg3 21:54 Urine collected: clean catch specimen, clear. vc1 22:44 Abdomen In Process Unspecified. EDMS 23:41 Saul Bradford MD is Hospitalizing Provider. kb 09/05 00:28 Provided Education on: AMA form and responsibility that comes with signing that form. bm8 00:28 No provider procedures requiring assistance completed. IV discontinued, intact, bm8 bleeding controlled, No redness/swelling at site. Pressure dressing applied. Administered Medications: 09/04 21:23 Drug: Famotidine IVP 20 mg IVP once; dilute with 10 mL 0.9% NaCl; give over 2 minutes lg3 Route: IVP; Site: right wrist; 09/05 02:32 Follow up: Response: No adverse reaction bm8 09/04 21:23 Drug: Ketorolac IVP 15 mg IVP once Route: IVP; Site: right wrist; lg3 09/05 02:32 Follow up: Response: No adverse reaction bm8 09/04 21:24 Drug: NS 0.9% IV 1000 ml IV at 1000 ml once Route: IV; Rate: 1000 ml; Site: right wrist;lg3 09/05 02:33 Follow up: Response: No adverse reaction; IV Status: Completed infusion; IV Intake: bm8 1000ml 09/04 21:59 Drug: Promethazine IVP 12.5 mg IVP once Route: IVP; Site: left forearm; vc1 09/05 02:32 Follow up: Response: No adverse reaction bm8 Medication: 00:28 VIS not applicable for this client. bm8 Intake: 02:33 IV: 1000ml; Total: 1000ml. bm8 Outcome: 09/04 23:41 Decision to Hospitalize by Provider. kb 09/05 00:28 AMA AMA form signed bm8 Condition: stable Instructed on follow up and referral plans. Demonstrated understanding of instructions, follow-up care, 00:34 Patient left the ED. vc1 Signatures: Dispatcher [employer] EDMS Jennyfer Kerns, FURNACE ATTENDANT-C FURNACE ATTENDANT-Ckb Tiffanie Rai, RN RN lg3 Magalis Stokesj6 Rosalie Kat RN RN vc1 iG Broderick, RN RN km8 Melita Pina pm6 Michael Maloney RN RN bm8 Corrections: (The following items were deleted from the chart) 02:35 02:33 Reassessment: pt decided that after discussing plan of care that she would just bm8 prefer to go home and do that there. made aware. pt signed ama form and left without incident. bm8
--- NOTE | 2023-09-05 23:50 | P.HP ---
Certification for Inpatient Patient admitted to: Observation With expected LOS: <2 Midnights Practitioner: I am a practitioner with admitting privileges, knowledge of patient current condition, hospital course, and medical plan of care. Services: Services provided to patient in accordance with Admission requirements found in Title 42 Section 412.3 of the Code of Federal Regulations Patient History Date of Service: 09/06/23 Reason for admission: Abdominal pain History of Present Illness: 42 year old female with past medical history of Asthma; Hypothyroidism; Mast Cell Activation disorder; Migraines; mitral valve prolapse; SVT; and past surgical history of Appendectomy; Cholecystectomy; Tonsillectomy; and total abdominal hysterectomy; who presents for diarrhea, vomiting and diffuse abdominal pain which has been going on for the last 2 days and has been progressively worsening. Denies any fever or chills. No known sick contacts. She was seen in urgent care and was sent over here for further management. Patient was assessed in the ER and had a workup which was to rule out ileus versus SBO versus gastroenteritis Allergies Sulfa (Sulfonamide Antibiotics) Allergy (Mild, Verified 05/25/23 17:22) Anaphylaxis iodine Allergy (Verified 05/25/23 17:22) Shortness of breath morphine Allergy (Verified 05/24/23 22:14) Anaphylaxis Home Medications: Albuterol Inhaler [Ventolin Inhaler*] 2 puff NEB DAILY PRN 05/25/23 Cetirizine HCl [Zyrtec] 10 mg PO BEDTIME 05/25/23 Droxidopa 200 mg PO TID 05/25/23 Erenumab-Aooe [Aimovig Autoinjector] 140 mg SQ DIRECTED 05/25/23 Estrogens, Conjugated [Premarin] 1.25 mg PO DAILY 05/25/23 Famotidine [Pepcid AC] 10 mg PO BEDTIME 05/25/23 Liothyronine Sodium [Cytomel] 5 mcg PO BID 05/25/23 Loratadine [Claritin] 1 tab PO DAILY 05/25/23 Montelukast Sodium [Singulair] 10 mg PO BEDTIME 05/25/23 Ondansetron HCl 4 mg PO DAILY PRN 05/25/23 Prednisolone Acetate/Pf [Prednisolone Acet 1% Eye Drop] 2 gtts EACH EYE DAILY PRN 05/25/23 Rimegepant Sulfate [Nurtec Odt] 1 tab PO BEDTIME 05/25/23 Thyroid,Pork [[place] Thyroid] 120 mg PO 0800 05/25/23 Topiramate [Topamax] 200 mg PO BID 05/25/23 hydrOXYzine HCL [Atarax*] 25 mg PO DAILY 05/25/23 hydrOXYzine HCL [Atarax] 50 mg PO BEDTIME 05/25/23 - Past Medical/Surgical History Past Medical History: Reviewed- Non-Contributory -: Gurmeet-Danlos -: Mast cell activation disorder -: Hypothyroidism -: Mitral valve prolapse Past Surgical History: Reviewed- Non-Contributory Psychosocial/ Personal History: Lives at home - Social History Smoking Status: Never smoker Alcohol use: No CD- Drugs: No Caffeine use: Yes Review of Systems 10-point ROS is otherwise unremarkable Physical Examination - Vital Signs Temperature: 97.3 F Blood Pressure: 122/84 Pulse: 76 Respirations: 18 Pulse Ox (%): 95 - Physical Exam General: Alert, In no apparent distress, Oriented x3 HEENT: Atraumatic, Normocephalic Neck: Supple Respiratory: Clear to auscultation bilaterally, Normal air movement Cardiovascular: Regular rate/rhythm, Normal S1 S2, No rubs Capillary refill: <2 Seconds Gastrointestinal: Soft and benign, W/out hepatosplenomegaly, Tenderness Musculoskeletal: No clubbing, No swelling Integumentary: No rashes Neurological: Normal strength at 5/5 x4 extr, Sensation intact, Cranial nerves 3-12 intact, Normal reflexes 2+, Normal affect Lymphatics: No axilla or inguinal lymphadenopathy - Studies Laboratory Data (last 24 hrs) 09/05/23 09/05/23 21:17 21:17 WBC 8.20 Hgb 14.4 Hct 41.9 Plt Count 345 Sodium 139 Potassium 3.6 BUN 15 Creatinine 0.79 Glucose 123 H Total Bilirubin 0.4 AST 16 ALT 22 Alkaline Phosphatase 90 Lipase 30 Imagings Data: IMPRESSION: Small bowel dilatation with smooth transition point in the central abdomen. This could reflect an early mechanical small bowel obstruction versus ileus. Nonobstructive nephrolithiasis. Cholecystectomy and appendectomy Assessment and Plan - Problems (Diagnosis) (1) SBO (small bowel obstruction) Status: Acute Plan: SBO /Acute gastroenteritis Pain control Monitor closely on telemetry Conservative management Surgical consulted Chronic issues Continue home medication Patient does not want to stay in the hospital because of the dog She left AMA - Advance Directives Does patient have a Living Will: No Does patient have a Durable POA for Healthcare: No Time Spent Managing Pts Care (In Minutes): 44
[2023-09-06] MEDS ORDERED: ONDANSETRON 4 MG/2 ML VIAL IV PRN (00:03)
[2023-09-06] MEDS ORDERED: ACETAMINOPHEN 325 MG TABLET PO PRN (00:03)
[2023-09-06 00:56] VITALS: TEMP 97.3; O2SAT 99
[2023-09-06] MEDS ORDERED: NA CHLORIDE 0.9% 1,000 ML IV SCH (01:00)
[2023-09-06 01:37] VITALS: BP 122/84
[2023-09-06] MEDS ORDERED: ENOXAPARIN 40 MG/0.4 ML SQ SCH (09:00)
== END 2023-09-06 00:30 | disposition left against medical advice (07) | DRG 389 ==
LOC: ER 20:47 → ERHOLD 09-06 00:03
PROVIDERS: ADMIT Family Medicine; ATTEND Internal Medicine
DX: K56.609 Unspecified intestinal obstruction, unspecified as to partial versus complete obstruction (principal); I47.10 Supraventricular tachycardia, unspecified; Q79.60 Ehlers-Danlos syndrome, unspecified; K56.7 Ileus, unspecified; K52.9 Noninfective gastroenteritis and colitis, unspecified; Z53.29 Procedure and treatment not carried out because of patient's decision for other reasons; N20.0 Calculus of kidney; E03.9 Hypothyroidism, unspecified; I34.1 Nonrheumatic mitral (valve) prolapse; D89.40 Mast cell activation, unspecified; J45.909 Unspecified asthma, uncomplicated; G43.909 Migraine, unspecified, not intractable, without status migrainosus; Z90.49 Acquired absence of other specified parts of digestive tract; Z90.710 Acquired absence of both cervix and uterus; Z79.899 Other long term (current) drug therapy; Z88.2 Allergy status to sulfonamides; Z88.5 Allergy status to narcotic agent; Z91.041 Radiographic dye allergy status; Z91.030 Bee allergy status
CPT/HCPCS: 36415; 74176; 80053; 81001; 83690; 85025; 99284; J2550; J7030